=== PATIENT | male | born 1940 | race African-American/Black ===

== ENCOUNTER 2018-09-30 16:33 | Inpatient (IN) ==
[2018-09-30] MEDS ORDERED: ONDANSETRON 4 MG/2 ML VIAL ONE (17:59)
[2018-09-30] MEDS ORDERED: ONDANSETRON 4 MG/2 ML VIAL IV STA (18:04)
[2018-09-30 18:19] LABS: Apearance,Urine CLEAR (Clear); Bilirubin,Urine Negative (Negative); Blood, Urine Negative (Negative); Glucose,Urine (UA) Negative (Negative); Ketones,Urine Negative (Negative); Mucus,Urine Occasional /LPF (Occasional); Nitrite,Urine Negative (Negative); Protein,Urine Negative; RBC,Urine <1 /HPF (0-4); Urine Color Yellow (Yellow); Urine Specific Gravity 1.015 (1.001-1.035); Urine Urobilinogen < 2.0 EU/DL (0.2-1.0); WBC,Urine 2 /HPF (0-6)
[2018-09-30 18:47] LABS: Basophils % 0.4 % (0.0-0.8); Eosinophils % 0.1 % (0.00-10.9); Hemoglobin 13.8 GM/DL (14.0-18.0); Immature Granulocytes % 0.2 %; Immature Granulocytes Absolute 0.02 #; Lymphocytes # 0.6 10*3/uL (1.4-4.0); Lymphocytes % 6.1 % (21.2-54.2); Mean Corpuscular HGB Conc 34.5 GM/DL (32-36); Mean Corpuscular Hemoglobin 32 PG (27-34); Mean Corpuscular Volume 91.5 FL (87-102); Mean Platelet Volume 10.4 FL (9.6-12.0); Monocytes # 0.3 10*3/uL (0.11-0.8); Monocytes % 2.6 % (1.7-12.7); Neutrophils # 9.3 10*3/uL (1.4-7.4); Neutrophils % 90.6 % (38.7-73.9); Platelet Count 221 T/CUMM (130-400); Red Blood Count 4.37 MC/CUMM (3.8-5.5); Red Cell Distribution Width 13.1 % (9.3-17.3); White Blood Count 10.3 T/CUMM (4-12)
[2018-09-30 18:57] LABS: PT Patient Result 11.3 SECS
[2018-09-30 19:08] LABS: Albumin 3.7 G/DL (3.4-5.0); Bilirubin,Total 0.5 MG/DL (0.2-1.0); Calcium 8.7 MG/DL (8.5-10.1); Osmolality,Calculated 278.5 MOS/KG (273-304); Potassium 3.9 MMOL/L (3.5-5.1); Total Protein 7.6 G/DL (6.4-8.3)
[2018-09-30 19:14] LABS: Lymphocytes 6 % (20-55); Platelet Estimate Adequate; Segmented Neutrophils 92 % (50-85); Total Cells Counted 100
[2018-09-30] MEDS ORDERED: LABETALOL 20 MG/4 ML SYRINGE IV PRN (20:08)
[2018-09-30] MEDS ORDERED: ONDANSETRON 4 MG/2 ML VIAL IV PRN (20:08)
[2018-09-30] MEDS ORDERED: ENOXAPARIN 40 MG/0.4 ML SYRINGE SUBCUT SCH (21:00)
[2018-09-30] MEDS: DORZOLAMIDE/TIMOLOL OPH SOLN 10 ML BOTTLE RIGHT EYE SCH (23:00)
[2018-09-30] MEDS: LATANOPROST 0.005% OPH SOLN 2.5 ML BOTTLE BOTH EYES SCH (23:45)
[2018-10-01 07:12] LABS: Basophils % 0.3 % (0.0-0.8); Eosinophils # 0.1 10*3/uL (0.0-0.87); Eosinophils % 0.9 % (0.00-10.9); Hematocrit 41.6 VOL% (42.0-52.0); Hemoglobin 14.2 GM/DL (14.0-18.0); Immature Granulocytes % 0.2 %; Immature Granulocytes Absolute 0.02 #; Lymphocytes # 1.4 10*3/uL (1.4-4.0); Mean Corpuscular HGB Conc 34.1 GM/DL (32-36); Mean Corpuscular Hemoglobin 31 PG (27-34); Mean Corpuscular Volume 91.4 FL (87-102); Mean Platelet Volume 10.5 FL (9.6-12.0); Monocytes # 0.8 10*3/uL (0.11-0.8); Monocytes % 8.8 % (1.7-12.7); Neutrophils # 6.5 10*3/uL (1.4-7.4); Neutrophils % 73.8 % (38.7-73.9); Platelet Count 230 T/CUMM (130-400); Red Blood Count 4.55 MC/CUMM (3.8-5.5); Red Cell Distribution Width 13.2 % (9.3-17.3); White Blood Count 8.8 T/CUMM (4-12)
[2018-10-01 07:40] LABS: Risk Ratio 5.06; VLDL CHOLESTEROL 15.2 MG/DL
[2018-10-01] MEDS: TAMSULOSIN 0.4 MG CAPSULE PO SCH (09:53)
[2018-10-01] MEDS: ASPIRIN 325 MG TABLET PO SCH (09:53)
[2018-10-01] MEDS: DOCUSATE SODIUM 100 MG CAPSULE PO SCH (09:54)
[2018-10-01] MEDS: FINASTERIDE 5 MG TABLET PO SCH (09:54)
[2018-10-01] MEDS: CHOLECALCIFEROL 1,000 UNIT TABLET PO SCH (09:54)
[2018-10-01] MEDS: MULTIVITAMIN (CENTRUM) TABLET PO SCH (09:54)
[2018-10-01] MEDS: DORZOLAMIDE/TIMOLOL OPH SOLN 10 ML BOTTLE RIGHT EYE SCH ×2 (15:50→23:00)
[2018-10-01] MEDS: ENOXAPARIN 100 MG/ML SYRINGE SUBCUT SCH (15:51)
[2018-10-01] MEDS: amLODIPine 5 MG TABLET PO SCH (15:51)
[2018-10-01] MEDS: MINERAL OIL/PETROLATUM OPH OINT 3.5 GM TUBE BOTH EYES SCH (22:03)
[2018-10-01] MEDS: ATORVASTATIN 40 MG TABLET PO SCH (22:03)
[2018-10-01] MEDS: LATANOPROST 0.005% OPH SOLN 2.5 ML BOTTLE BOTH EYES SCH (22:03)
[2018-10-02] MEDS: ENOXAPARIN 100 MG/ML SYRINGE SUBCUT SCH ×2 (01:38→15:09)
[2018-10-02] MEDS: DOCUSATE SODIUM 100 MG CAPSULE PO SCH (10:02)
[2018-10-02] MEDS: CHOLECALCIFEROL 1,000 UNIT TABLET PO SCH (10:02)
[2018-10-02] MEDS: ASPIRIN 325 MG TABLET PO SCH (10:02)
[2018-10-02] MEDS: MULTIVITAMIN (CENTRUM) TABLET PO SCH (10:02)
[2018-10-02] MEDS: TAMSULOSIN 0.4 MG CAPSULE PO SCH (10:02)
[2018-10-02] MEDS: amLODIPine 5 MG TABLET PO SCH (10:02)
[2018-10-02] MEDS: FINASTERIDE 5 MG TABLET PO SCH (10:03)
[2018-10-02] MEDS: DORZOLAMIDE/TIMOLOL OPH SOLN 10 ML BOTTLE RIGHT EYE SCH ×2 (11:48→22:13)
[2018-10-02] MEDS: ATORVASTATIN 40 MG TABLET PO SCH (21:09)
[2018-10-02] MEDS: APIXABAN 5 MG TABLET PO SCH (21:09)
[2018-10-02] MEDS: MINERAL OIL/PETROLATUM OPH OINT 3.5 GM TUBE BOTH EYES SCH (21:10)
[2018-10-02] MEDS: LATANOPROST 0.005% OPH SOLN 2.5 ML BOTTLE BOTH EYES SCH (21:10)
[2018-10-03] MEDS ORDERED: LACTULOSE 20 GM/30 ML UDCUP PO PRN (08:48)
[2018-10-03] MEDS: FINASTERIDE 5 MG TABLET PO SCH (08:59)
[2018-10-03] MEDS: ASPIRIN 325 MG TABLET PO SCH (09:00)
[2018-10-03] MEDS: CHOLECALCIFEROL 1,000 UNIT TABLET PO SCH (09:00)
[2018-10-03] MEDS ORDERED: DORZOLAMIDE/TIMOLOL OPH SOLN 10 ML BOTTLE RIGHT EYE SCH (09:00)
[2018-10-03] MEDS: amLODIPine 5 MG TABLET PO SCH (09:01)
[2018-10-03] MEDS: APIXABAN 5 MG TABLET PO SCH (09:01)
[2018-10-03] MEDS: MULTIVITAMIN (CENTRUM) TABLET PO SCH (09:01)
[2018-10-03] MEDS: TAMSULOSIN 0.4 MG CAPSULE PO SCH (09:01)
[2018-10-03] MEDS: DOCUSATE SODIUM 100 MG CAPSULE PO SCH (09:02)
[2018-10-03] MEDS ORDERED: BISACODYL 5 MG TABLET PO PRN (09:03)
[2018-10-03 16:24] VITALS: BP 127/88
== END 2018-10-03 16:31 | DRG 65 ==
LOC: EDUNIT# → EDBD → N.2E 16:33 → N.ED 16:33 → SUATTDRO 20:08 → N.2E 21:28
PROVIDERS: ADMIT Internal Medicine; ATTEND Internal Medicine

== ENCOUNTER 2019-06-04 11:44 | Inpatient (IN) ==
[2019-06-04 12:46] LABS: Basophils % 0.5 % (0.0-0.8); Eosinophils # 0.1 10*3/uL (0.0-0.87); Eosinophils % 0.8 % (0.00-10.9); Hematocrit 39.6 VOL% (42.0-52.0); Hemoglobin 13.8 GM/DL (14.0-18.0); Immature Granulocytes % 0.3 %; Immature Granulocytes Absolute 0.02 #; Lymphocytes # 1.2 10*3/uL (1.4-4.0); Lymphocytes % 16.3 % (21.2-54.2); Mean Corpuscular HGB Conc 34.8 GM/DL (32-36); Mean Corpuscular Volume 93.2 FL (87-102); Monocytes % 7.7 % (1.7-12.7); Neutrophils % 74.4 % (38.7-73.9); Platelet Count 193 T/CUMM (130-400); Red Blood Count 4.25 MC/CUMM (3.8-5.5); White Blood Count 7.5 T/CUMM (4-12)
[2019-06-04 12:55] LABS: PT Patient Result 11.2 SECS (9.6-12.2); Partial Thromboplastin Time 33.7 SECS (20.8-36.0)
[2019-06-04 13:04] LABS: Alanine Aminotransferase 30 U/L (16-61); Albumin 3.8 G/DL (3.4-5.0); Alkaline Phosphatase 106 U/L (45-117); Aspartate Amino Transferase 23 U/L (0-37); Blood Urea Nitrogen 9 MG/DL (7-18); Estimated Glom Filtration Rate 109 ML/MIN; Glucose 103 MG/DL (74-106); Osmolality,Calculated 279.3 MOS/KG (273-304); Total Protein 7.4 G/DL (6.4-8.3)
[2019-06-04] MEDS ORDERED: LABETALOL 20 MG/4 ML SYRINGE IV PRN (16:11)
[2019-06-04 16:43] LABS: Risk Ratio 2.58; VLDL CHOLESTEROL 9.6 MG/DL
[2019-06-04] MEDS: SODIUM CHLORIDE 0.9% 1,000 ML IV SCH (21:10)
[2019-06-04] MEDS: NEPAFENAC 0.1% OPH SOLN 3 ML BOTTLE LEFT EYE SCH (21:19)
[2019-06-04] MEDS: prednisoLONE ACETATE 1% OPH SUSP 5 ML BOTTLE LEFT EYE SCH (21:20)
[2019-06-04] MEDS: MOXIFLOXACIN 0.5% OPH SOLN 3 ML BOTTLE LEFT EYE SCH (21:20)
[2019-06-05 05:15] LABS: Calcium 8.4 MG/DL (8.5-10.1); Osmolality,Calculated 277.4 MOS/KG (273-304)
[2019-06-05] MEDS: SODIUM CHLORIDE 0.9% 1,000 ML IV SCH (05:23)
[2019-06-05 06:19] LABS: Basophils # 0.1 10*3/uL (0.0-0.2); Basophils % 0.6 % (0.0-0.8); Eosinophils # 0.1 10*3/uL (0.0-0.87); Eosinophils % 1.4 % (0.00-10.9); Hematocrit 40.7 VOL% (42.0-52.0); Hemoglobin 14.3 GM/DL (14.0-18.0); Immature Granulocytes % 0.3 %; Immature Granulocytes Absolute 0.02 #; Lymphocytes # 0.9 10*3/uL (1.4-4.0); Lymphocytes % 11.9 % (21.2-54.2); Mean Corpuscular HGB Conc 35.1 GM/DL (32-36); Mean Corpuscular Volume 92.7 FL (87-102); Mean Platelet Volume 10.2 FL (9.6-12.0); Monocytes % 7.6 % (1.7-12.7); Neutrophils % 78.2 % (38.7-73.9); Platelet Count 198 T/CUMM (130-400); Red Blood Count 4.39 MC/CUMM (3.8-5.5); White Blood Count 7.8 T/CUMM (4-12)
[2019-06-05] MEDS: prednisoLONE ACETATE 1% OPH SUSP 5 ML BOTTLE LEFT EYE SCH ×4 (08:31→21:15)
[2019-06-05] MEDS: MOXIFLOXACIN 0.5% OPH SOLN 3 ML BOTTLE LEFT EYE SCH ×3 (08:31→21:15)
[2019-06-05] MEDS: NEPAFENAC 0.1% OPH SOLN 3 ML BOTTLE LEFT EYE SCH ×3 (08:31→21:15)
[2019-06-05] MEDS: ASPIRIN 325 MG TABLET PO SCH (16:55)
[2019-06-05] MEDS: TAMSULOSIN 0.4 MG CAPSULE PO SCH (16:56)
[2019-06-05] MEDS: APIXABAN 5 MG TABLET PO SCH ×2 (16:56→21:15)
[2019-06-05] MEDS: amLODIPine 2.5 MG TABLET PO SCH (16:56)
[2019-06-05] MEDS: FINASTERIDE 5 MG TABLET PO SCH (16:56)
[2019-06-05] MEDS: PANTOPRAZOLE 40 MG TABLET PO SCH (16:57)
[2019-06-05] MEDS: ATORVASTATIN 40 MG TABLET PO SCH (21:15)
[2019-06-06] MEDS: SODIUM CHLORIDE 0.9% 1,000 ML IV SCH (03:05)
[2019-06-06 05:08] LABS: Calcium 8.4 MG/DL (8.5-10.1); Osmolality,Calculated 282.1 MOS/KG (273-304); Prealbumin 19.8 MG/DL (20-40)
[2019-06-06] MEDS: MOXIFLOXACIN 0.5% OPH SOLN 3 ML BOTTLE LEFT EYE SCH ×3 (09:11→20:38)
[2019-06-06] MEDS: APIXABAN 5 MG TABLET PO SCH ×2 (09:11→20:36)
[2019-06-06] MEDS: prednisoLONE ACETATE 1% OPH SUSP 5 ML BOTTLE LEFT EYE SCH ×4 (09:11→20:38)
[2019-06-06] MEDS: NEPAFENAC 0.1% OPH SOLN 3 ML BOTTLE LEFT EYE SCH ×3 (09:11→20:37)
[2019-06-06] MEDS: FINASTERIDE 5 MG TABLET PO SCH (09:12)
[2019-06-06] MEDS: TAMSULOSIN 0.4 MG CAPSULE PO SCH (09:12)
[2019-06-06] MEDS: amLODIPine 2.5 MG TABLET PO SCH (09:12)
[2019-06-06] MEDS: ASPIRIN 325 MG TABLET PO SCH (09:12)
[2019-06-06] MEDS: PANTOPRAZOLE 40 MG TABLET PO SCH (09:12)
[2019-06-06] MEDS: ATORVASTATIN 40 MG TABLET PO SCH (20:37)
[2019-06-07 05:15] LABS: Basophils % 0.3 % (0.0-0.8); Eosinophils # 0.2 10*3/uL (0.0-0.87); Eosinophils % 1.6 % (0.00-10.9); Hemoglobin 13.7 GM/DL (14.0-18.0); Immature Granulocytes % 0.2 %; Immature Granulocytes Absolute 0.02 #; Lymphocytes % 9.2 % (21.2-54.2); Mean Corpuscular HGB Conc 35.1 GM/DL (32-36); Mean Corpuscular Volume 92.6 FL (87-102); Mean Platelet Volume 10.6 FL (9.6-12.0); Monocytes % 9.3 % (1.7-12.7); Neutrophils % 79.4 % (38.7-73.9); Platelet Count 219 T/CUMM (130-400); Red Blood Count 4.21 MC/CUMM (3.8-5.5); White Blood Count 10.7 T/CUMM (4-12)
[2019-06-07 05:29] LABS: Calcium 8.9 MG/DL (8.5-10.1); Osmolality,Calculated 284.3 MOS/KG (273-304)
[2019-06-07] MEDS: PANTOPRAZOLE 40 MG TABLET PO SCH (10:04)
[2019-06-07] MEDS: NEPAFENAC 0.1% OPH SOLN 3 ML BOTTLE LEFT EYE SCH ×3 (10:04→21:16)
[2019-06-07] MEDS: APIXABAN 5 MG TABLET PO SCH ×2 (10:04→21:16)
[2019-06-07] MEDS: amLODIPine 2.5 MG TABLET PO SCH (10:04)
[2019-06-07] MEDS: ASPIRIN 325 MG TABLET PO SCH (10:04)
[2019-06-07] MEDS: MOXIFLOXACIN 0.5% OPH SOLN 3 ML BOTTLE LEFT EYE SCH ×3 (10:04→21:17)
[2019-06-07] MEDS: TAMSULOSIN 0.4 MG CAPSULE PO SCH (10:04)
[2019-06-07] MEDS: FINASTERIDE 5 MG TABLET PO SCH (10:04)
[2019-06-07] MEDS: prednisoLONE ACETATE 1% OPH SUSP 5 ML BOTTLE LEFT EYE SCH ×4 (10:04→21:16)
[2019-06-07] MEDS: ATORVASTATIN 40 MG TABLET PO SCH (21:16)
[2019-06-08] MEDS ORDERED: FUROSEMIDE 40 MG/4 ML VIAL IV ONE (06:03)
[2019-06-08] MEDS ORDERED: methylPREDNISolone SOD SUC 40 MG/1 ML VIAL IV ONE (06:04)
[2019-06-08 06:19] LABS: ABG Base Excess 3.5 MMOL/L (-2.5-2.5); ABG HCO3 27.4 MMOL/L (20-26); ABG Oxygen Saturation 94.3 % (95-100); ABG PCO2 38.2 MM HG (35-48); ABG PH 7.462 (7.35-7.45); ABG PO2 67.2 MM HG (80-95); ABG TCO2 23.4 MMOL/L (23-27); Allen Test Positive; Pt O2 Delivery Device BIPAP
[2019-06-08] MEDS: PIPERACILLIN/TAZOBACTAM 3,375 MG in SODIUM CHLORIDE 0.9% 100 ML IV SCH ×3 (06:37→23:25)
[2019-06-08 07:10] LABS: Calcium 8.7 MG/DL (8.5-10.1); Osmolality,Calculated 277.7 MOS/KG (273-304)
[2019-06-08] MEDS: ALBUTEROL/IPRATROPIUM 3 ML NEB RESP TX SCH ×5 (07:50→23:52)
[2019-06-08] MEDS ORDERED: MANNITOL 100 GM/500 ML BAG IV ONE (11:33)
[2019-06-08] MEDS ORDERED: MANNITOL 12.5 GM/50 ML VIAL IV SCH (12:00)
[2019-06-08] MEDS: APIXABAN 5 MG TABLET PO SCH ×3 (12:15→20:26)
[2019-06-08] MEDS: TAMSULOSIN 0.4 MG CAPSULE PO SCH (12:15)
[2019-06-08] MEDS: ASPIRIN 325 MG TABLET PO SCH ×2 (12:15→12:54)
[2019-06-08] MEDS: prednisoLONE ACETATE 1% OPH SUSP 5 ML BOTTLE LEFT EYE SCH ×4 (12:16→20:27)
[2019-06-08] MEDS: amLODIPine 2.5 MG TABLET PO SCH ×2 (12:16→12:55)
[2019-06-08] MEDS: MAGNESIUM HYDROXIDE SUSP 30 ML UDCUP PO SCH (12:16)
[2019-06-08] MEDS: FINASTERIDE 5 MG TABLET PO SCH (12:16)
[2019-06-08] MEDS: PANTOPRAZOLE 40 MG TABLET PO SCH (12:16)
[2019-06-08] MEDS: NEPAFENAC 0.1% OPH SOLN 3 ML BOTTLE LEFT EYE SCH ×3 (12:16→20:27)
[2019-06-08] MEDS: MOXIFLOXACIN 0.5% OPH SOLN 3 ML BOTTLE LEFT EYE SCH ×3 (12:17→20:28)
[2019-06-08] MEDS ORDERED: MANNITOL 100 GM in PREMIX 1 EACH IV ONE (13:00)
[2019-06-08] MEDS: MANNITOL IV SCH (20:25)
[2019-06-08] MEDS: ATORVASTATIN 40 MG TABLET PO SCH (20:26)
[2019-06-09] MEDS: ALBUTEROL/IPRATROPIUM 3 ML NEB RESP TX SCH ×6 (04:20→23:05)
[2019-06-09] MEDS: MANNITOL IV SCH ×3 (05:01→20:04)
[2019-06-09] MEDS: PIPERACILLIN/TAZOBACTAM 3,375 MG in SODIUM CHLORIDE 0.9% 100 ML IV SCH ×3 (06:09→23:19)
[2019-06-09] MEDS: TAMSULOSIN 0.4 MG CAPSULE PO SCH (08:55)
[2019-06-09] MEDS: ASPIRIN 325 MG TABLET PO SCH (08:55)
[2019-06-09] MEDS: PANTOPRAZOLE 40 MG TABLET PO SCH (08:55)
[2019-06-09] MEDS: MAGNESIUM HYDROXIDE SUSP 30 ML UDCUP PO SCH (08:55)
[2019-06-09] MEDS: amLODIPine 2.5 MG TABLET PO SCH (08:55)
[2019-06-09] MEDS: APIXABAN 5 MG TABLET PO SCH ×2 (08:55→20:02)
[2019-06-09] MEDS: FINASTERIDE 5 MG TABLET PO SCH (08:55)
[2019-06-09] MEDS: NEPAFENAC 0.1% OPH SOLN 3 ML BOTTLE LEFT EYE SCH ×3 (08:56→20:15)
[2019-06-09] MEDS: MOXIFLOXACIN 0.5% OPH SOLN 3 ML BOTTLE LEFT EYE SCH ×3 (08:56→20:15)
[2019-06-09] MEDS: prednisoLONE ACETATE 1% OPH SUSP 5 ML BOTTLE LEFT EYE SCH ×4 (08:56→20:15)
[2019-06-09] MEDS ORDERED: amLODIPine 5 MG TABLET PO SCH (09:00)
[2019-06-09 11:47] LABS: Calcium 8.8 MG/DL (8.5-10.1); Osmolality,Calculated 289.3 MOS/KG (273-304)
[2019-06-09] MEDS: ATORVASTATIN 40 MG TABLET PO SCH (20:10)
[2019-06-10] MEDS: ALBUTEROL/IPRATROPIUM 3 ML NEB RESP TX SCH ×6 (03:00→23:32)
[2019-06-10] MEDS: MANNITOL IV SCH ×3 (05:04→20:37)
[2019-06-10 05:36] LABS: Basophils % 0.4 % (0.0-0.8); Eosinophils # 0.1 10*3/uL (0.0-0.87); Eosinophils % 1.1 % (0.00-10.9); Hemoglobin 13.1 GM/DL (14.0-18.0); Immature Granulocytes % 0.4 %; Immature Granulocytes Absolute 0.04 #; Lymphocytes # 0.9 10*3/uL (1.4-4.0); Lymphocytes % 7.5 % (21.2-54.2); Mean Corpuscular HGB Conc 33.6 GM/DL (32-36); Mean Corpuscular Volume 96.3 FL (87-102); Monocytes % 10.9 % (1.7-12.7); Neutrophils % 79.7 % (38.7-73.9); Platelet Count 214 T/CUMM (130-400); Red Blood Count 4.05 MC/CUMM (3.8-5.5); Red Cell Distribution Width 13.2 % (9.3-17.3); White Blood Count 11.4 T/CUMM (4-12)
[2019-06-10] MEDS: PIPERACILLIN/TAZOBACTAM 3,375 MG in SODIUM CHLORIDE 0.9% 100 ML IV SCH ×3 (06:10→23:42)
[2019-06-10 06:12] LABS: Calcium 8.5 MG/DL (8.5-10.1); Osmolality,Calculated 299.8 MOS/KG (273-304); Prealbumin 11.1 MG/DL (20-40)
[2019-06-10] MEDS: ASPIRIN 325 MG TABLET PO SCH (10:06)
[2019-06-10] MEDS: FINASTERIDE 5 MG TABLET PO SCH (10:06)
[2019-06-10] MEDS: prednisoLONE ACETATE 1% OPH SUSP 5 ML BOTTLE LEFT EYE SCH ×4 (10:07→20:37)
[2019-06-10] MEDS: TAMSULOSIN 0.4 MG CAPSULE PO SCH (10:07)
[2019-06-10] MEDS: PANTOPRAZOLE 40 MG TABLET PO SCH (10:07)
[2019-06-10] MEDS: APIXABAN 5 MG TABLET PO SCH (10:07)
[2019-06-10] MEDS: amLODIPine 2.5 MG TABLET PO SCH (10:07)
[2019-06-10] MEDS: NEPAFENAC 0.1% OPH SOLN 3 ML BOTTLE LEFT EYE SCH ×3 (10:07→20:37)
[2019-06-10] MEDS: MAGNESIUM HYDROXIDE SUSP 30 ML UDCUP PO SCH ×2 (10:08→20:19)
[2019-06-10] MEDS: MOXIFLOXACIN 0.5% OPH SOLN 3 ML BOTTLE LEFT EYE SCH ×3 (10:08→20:37)
[2019-06-10] MEDS: ATORVASTATIN 40 MG TABLET PO SCH (20:37)
[2019-06-11] MEDS: ALBUTEROL/IPRATROPIUM 3 ML NEB RESP TX SCH ×5 (03:37→19:28)
[2019-06-11] MEDS: MANNITOL IV SCH ×2 (05:13→12:27)
[2019-06-11 06:00] LABS: Basophils # 0.1 10*3/uL (0.0-0.2); Basophils % 0.5 % (0.0-0.8); Eosinophils # 0.3 10*3/uL (0.0-0.87); Eosinophils % 3.3 % (0.00-10.9); Hematocrit 39.8 VOL% (42.0-52.0); Hemoglobin 13.2 GM/DL (14.0-18.0); Immature Granulocytes % 0.2 %; Immature Granulocytes Absolute 0.02 #; Lymphocytes % 10.1 % (21.2-54.2); Mean Corpuscular HGB Conc 33.2 GM/DL (32-36); Mean Corpuscular Volume 97.3 FL (87-102); Mean Platelet Volume 11.2 FL (9.6-12.0); Monocytes % 10.8 % (1.7-12.7); Neutrophils % 75.1 % (38.7-73.9); Platelet Count 244 T/CUMM (130-400); Red Blood Count 4.09 MC/CUMM (3.8-5.5); Red Cell Distribution Width 13.2 % (9.3-17.3); White Blood Count 9.4 T/CUMM (4-12)
[2019-06-11 06:24] LABS: Calcium 8.8 MG/DL (8.5-10.1); Osmolality,Calculated 301.6 MOS/KG (273-304); Risk Ratio 3.29; VLDL CHOLESTEROL 15.4 MG/DL
[2019-06-11] MEDS: PIPERACILLIN/TAZOBACTAM 3,375 MG in SODIUM CHLORIDE 0.9% 100 ML IV SCH (07:23)
[2019-06-11] MEDS: FINASTERIDE 5 MG TABLET PO SCH (09:25)
[2019-06-11] MEDS: ASPIRIN 325 MG TABLET PO SCH (09:25)
[2019-06-11] MEDS: amLODIPine 2.5 MG TABLET PO SCH (09:25)
[2019-06-11] MEDS: LANSOPRAZOLE ODT 30 MG TABLET PO SCH (09:26)
[2019-06-11] MEDS: MAGNESIUM HYDROXIDE SUSP 30 ML UDCUP PO SCH (09:26)
[2019-06-11] MEDS: MOXIFLOXACIN 0.5% OPH SOLN 3 ML BOTTLE LEFT EYE SCH ×2 (09:26→21:58)
[2019-06-11] MEDS: NEPAFENAC 0.1% OPH SOLN 3 ML BOTTLE LEFT EYE SCH ×2 (09:26→21:58)
[2019-06-11] MEDS: TAMSULOSIN 0.4 MG CAPSULE PO SCH (09:26)
[2019-06-11] MEDS: prednisoLONE ACETATE 1% OPH SUSP 5 ML BOTTLE LEFT EYE SCH ×2 (09:26→21:58)
[2019-06-11] MEDS: AMOXICILLIN/CLAV 875 MG TABLET PEG SCH (12:24)
[2019-06-11] MEDS: BISACODYL 5 MG TABLET PO PRN ×2 (12:28→16:00)
[2019-06-11] MEDS: LACTULOSE 20 GM/30 ML UDCUP PO PRN (16:00)
[2019-06-11] MEDS: ATORVASTATIN 40 MG TABLET PO SCH (21:40)
[2019-06-12] MEDS: AMOXICILLIN/CLAV 875 MG TABLET PEG SCH ×2 (00:01→12:57)
[2019-06-12] MEDS: ALBUTEROL/IPRATROPIUM 3 ML NEB RESP TX SCH ×7 (00:21→23:20)
[2019-06-12 05:42] LABS: Basophils % 0.4 % (0.0-0.8); Eosinophils # 0.4 10*3/uL (0.0-0.87); Eosinophils % 4.4 % (0.00-10.9); Hematocrit 39.8 VOL% (42.0-52.0); Hemoglobin 13.1 GM/DL (14.0-18.0); Immature Granulocytes % 0.2 %; Immature Granulocytes Absolute 0.02 #; Lymphocytes # 0.9 10*3/uL (1.4-4.0); Lymphocytes % 10.2 % (21.2-54.2); Mean Corpuscular HGB Conc 32.9 GM/DL (32-36); Mean Corpuscular Volume 97.5 FL (87-102); Mean Platelet Volume 11.4 FL (9.6-12.0); Monocytes % 9.1 % (1.7-12.7); Neutrophils % 75.7 % (38.7-73.9); Platelet Count 239 T/CUMM (130-400); Red Blood Count 4.08 MC/CUMM (3.8-5.5); Red Cell Distribution Width 12.9 % (9.3-17.3); White Blood Count 8.9 T/CUMM (4-12)
[2019-06-12 06:05] LABS: Calcium 9.1 MG/DL (8.5-10.1); Osmolality,Calculated 296.7 MOS/KG (273-304)
[2019-06-12] MEDS: ASPIRIN 325 MG TABLET PO SCH (09:13)
[2019-06-12] MEDS: POLYETHYLENE GLYCOL POWDER 17 GM PACK PO SCH (09:13)
[2019-06-12] MEDS: FINASTERIDE 5 MG TABLET PO SCH (09:13)
[2019-06-12] MEDS: LANSOPRAZOLE ODT 30 MG TABLET PO SCH (09:13)
[2019-06-12] MEDS: amLODIPine 2.5 MG TABLET PO SCH (09:13)
[2019-06-12] MEDS: BISACODYL 5 MG TABLET PO PRN (09:13)
[2019-06-12] MEDS: LACTULOSE 20 GM/30 ML UDCUP PO PRN (09:13)
[2019-06-12] MEDS: MAGNESIUM HYDROXIDE SUSP 30 ML UDCUP PO SCH (09:14)
[2019-06-12] MEDS: TAMSULOSIN 0.4 MG CAPSULE PO SCH (09:14)
[2019-06-12] MEDS: prednisoLONE ACETATE 1% OPH SUSP 5 ML BOTTLE LEFT EYE SCH ×2 (09:14→21:31)
[2019-06-12] MEDS: NEPAFENAC 0.1% OPH SOLN 3 ML BOTTLE LEFT EYE SCH ×2 (09:15→21:31)
[2019-06-12] MEDS: MOXIFLOXACIN 0.5% OPH SOLN 3 ML BOTTLE LEFT EYE SCH ×2 (09:15→21:31)
[2019-06-12] MEDS: ATORVASTATIN 40 MG TABLET PO SCH (21:26)
[2019-06-13] MEDS: AMOXICILLIN/CLAV 875 MG TABLET PEG SCH ×3 (00:21→23:01)
[2019-06-13] MEDS: ALBUTEROL/IPRATROPIUM 3 ML NEB RESP TX SCH ×5 (04:08→19:20)
[2019-06-13 05:06] LABS: Basophils # 0.1 10*3/uL (0.0-0.2); Basophils % 0.6 % (0.0-0.8); Eosinophils # 0.4 10*3/uL (0.0-0.87); Eosinophils % 4.4 % (0.00-10.9); Hematocrit 38.1 VOL% (42.0-52.0); Hemoglobin 12.7 GM/DL (14.0-18.0); Immature Granulocytes % 0.4 %; Immature Granulocytes Absolute 0.04 #; Lymphocytes # 1.1 10*3/uL (1.4-4.0); Lymphocytes % 11.9 % (21.2-54.2); Mean Corpuscular HGB Conc 33.3 GM/DL (32-36); Mean Corpuscular Volume 97.2 FL (87-102); Mean Platelet Volume 10.5 FL (9.6-12.0); Monocytes % 8.5 % (1.7-12.7); Neutrophils % 74.2 % (38.7-73.9); Platelet Count 231 T/CUMM (130-400); Red Blood Count 3.92 MC/CUMM (3.8-5.5); Red Cell Distribution Width 12.6 % (9.3-17.3)
[2019-06-13 05:26] LABS: Calcium 8.7 MG/DL (8.5-10.1); Prealbumin 16.7 MG/DL (20-40)
[2019-06-13] MEDS: POLYETHYLENE GLYCOL POWDER 17 GM PACK PO SCH (09:06)
[2019-06-13] MEDS: TAMSULOSIN 0.4 MG CAPSULE PO SCH (09:06)
[2019-06-13] MEDS: amLODIPine 2.5 MG TABLET PO SCH (09:06)
[2019-06-13] MEDS: FINASTERIDE 5 MG TABLET PO SCH (09:06)
[2019-06-13] MEDS: NEPAFENAC 0.1% OPH SOLN 3 ML BOTTLE LEFT EYE SCH ×2 (09:06→20:47)
[2019-06-13] MEDS: MAGNESIUM HYDROXIDE SUSP 30 ML UDCUP PO SCH (09:06)
[2019-06-13] MEDS: ASPIRIN 325 MG TABLET PO SCH (09:06)
[2019-06-13] MEDS: LANSOPRAZOLE ODT 30 MG TABLET PO SCH (09:06)
[2019-06-13] MEDS: MOXIFLOXACIN 0.5% OPH SOLN 3 ML BOTTLE LEFT EYE SCH ×2 (09:07→20:47)
[2019-06-13] MEDS: prednisoLONE ACETATE 1% OPH SUSP 5 ML BOTTLE LEFT EYE SCH ×2 (09:07→20:47)
[2019-06-13] MEDS: ATORVASTATIN 40 MG TABLET PO SCH (20:47)
[2019-06-13] MEDS: BISACODYL 5 MG TABLET PO PRN (22:51)
[2019-06-13] MEDS: LACTULOSE 20 GM/30 ML UDCUP PO PRN (22:51)
[2019-06-14] MEDS: ALBUTEROL/IPRATROPIUM 3 ML NEB RESP TX SCH ×7 (00:23→23:30)
[2019-06-14 05:43] LABS: Basophils # 0.1 10*3/uL (0.0-0.2); Basophils % 0.6 % (0.0-0.8); Eosinophils # 0.3 10*3/uL (0.0-0.87); Eosinophils % 3.2 % (0.00-10.9); Hematocrit 39.6 VOL% (42.0-52.0); Hemoglobin 13.2 GM/DL (14.0-18.0); Immature Granulocytes % 0.6 %; Immature Granulocytes Absolute 0.06 #; Lymphocytes # 1.3 10*3/uL (1.4-4.0); Lymphocytes % 12.6 % (21.2-54.2); Mean Corpuscular HGB Conc 33.3 GM/DL (32-36); Mean Corpuscular Volume 96.1 FL (87-102); Mean Platelet Volume 10.8 FL (9.6-12.0); Monocytes % 8.8 % (1.7-12.7); Neutrophils % 74.2 % (38.7-73.9); Platelet Count 254 T/CUMM (130-400); Red Blood Count 4.12 MC/CUMM (3.8-5.5); Red Cell Distribution Width 12.3 % (9.3-17.3); White Blood Count 10.4 T/CUMM (4-12)
[2019-06-14 06:11] LABS: Osmolality,Calculated 286.3 MOS/KG (273-304)
[2019-06-14] MEDS ORDERED: LACTATED RINGERS 1,000 ML IV SCH (08:00)
[2019-06-14] MEDS: prednisoLONE ACETATE 1% OPH SUSP 5 ML BOTTLE LEFT EYE SCH ×2 (09:07→22:05)
[2019-06-14] MEDS: TAMSULOSIN 0.4 MG CAPSULE PO SCH (09:08)
[2019-06-14] MEDS: FINASTERIDE 5 MG TABLET PO SCH (09:09)
[2019-06-14] MEDS: amLODIPine 2.5 MG TABLET PO SCH (09:09)
[2019-06-14] MEDS: NEPAFENAC 0.1% OPH SOLN 3 ML BOTTLE LEFT EYE SCH ×2 (09:13→22:05)
[2019-06-14] MEDS: LANSOPRAZOLE ODT 30 MG TABLET PO SCH (09:25)
[2019-06-14] MEDS: MOXIFLOXACIN 0.5% OPH SOLN 3 ML BOTTLE LEFT EYE SCH ×2 (09:25→22:05)
[2019-06-14] MEDS ORDERED: PROPOFOL 200 MG/20 ML VIAL IV ONE (10:00)
[2019-06-14] MEDS ORDERED: ETOMIDATE 20 MG/10 ML VIAL IV ONE (10:00)
[2019-06-14 12:32] LABS: ABG Base Excess 1.7 MMOL/L (-2.5-2.5); ABG HCO3 25.8 MMOL/L (20-26); ABG Oxygen Saturation 94.5 % (95-100); ABG PCO2 39.2 MM HG (35-48); ABG PH 7.429 (7.35-7.45); ABG PO2 72.1 MM HG (80-95); ABG TCO2 22.5 MMOL/L (23-27)
[2019-06-14] MEDS ORDERED: PHENOL 1.4% THROAT SPRAY 177 ML BOTTLE PO PRN (16:15)
[2019-06-14] MEDS: ASPIRIN 325 MG TABLET PO SCH (19:35)
[2019-06-14] MEDS: AMOXICILLIN/CLAV 875 MG TABLET PEG SCH (19:36)
[2019-06-14] MEDS: MAGNESIUM HYDROXIDE SUSP 30 ML UDCUP PO SCH (19:36)
[2019-06-14] MEDS: POLYETHYLENE GLYCOL POWDER 17 GM PACK PO SCH (19:36)
[2019-06-14] MEDS: ATORVASTATIN 40 MG TABLET PO SCH (22:06)
[2019-06-14] MEDS: APIXABAN 5 MG TABLET PO SCH (22:06)
[2019-06-15] MEDS: ALBUTEROL/IPRATROPIUM 3 ML NEB RESP TX SCH ×5 (03:14→19:35)
[2019-06-15 04:28] LABS: Basophils % 0.3 % (0.0-0.8); Eosinophils # 0.2 10*3/uL (0.0-0.87); Eosinophils % 1.1 % (0.00-10.9); Hematocrit 38.3 VOL% (42.0-52.0); Immature Granulocytes % 0.6 %; Immature Granulocytes Absolute 0.08 #; Lymphocytes % 6.9 % (21.2-54.2); Mean Corpuscular HGB Conc 33.9 GM/DL (32-36); Mean Platelet Volume 10.8 FL (9.6-12.0); Monocytes % 7.6 % (1.7-12.7); Neutrophils % 83.5 % (38.7-73.9); Platelet Count 281 T/CUMM (130-400); Red Blood Count 4.03 MC/CUMM (3.8-5.5); Red Cell Distribution Width 12.4 % (9.3-17.3); White Blood Count 14.3 T/CUMM (4-12)
[2019-06-15] MEDS: AMOXICILLIN/CLAV 875 MG TABLET PEG SCH ×2 (04:44→12:04)
[2019-06-15 04:57] LABS: Calcium 8.8 MG/DL (8.5-10.1); Osmolality,Calculated 291.1 MOS/KG (273-304)
[2019-06-15] MEDS: ASPIRIN 325 MG TABLET PO SCH (12:03)
[2019-06-15] MEDS: FINASTERIDE 5 MG TABLET PO SCH (12:04)
[2019-06-15] MEDS: APIXABAN 5 MG TABLET PO SCH ×2 (12:05→22:20)
[2019-06-15] MEDS: POLYETHYLENE GLYCOL POWDER 17 GM PACK PO SCH (12:06)
[2019-06-15] MEDS: MAGNESIUM HYDROXIDE SUSP 30 ML UDCUP PO SCH (12:06)
[2019-06-15] MEDS: TAMSULOSIN 0.4 MG CAPSULE PO SCH (12:06)
[2019-06-15] MEDS: LANSOPRAZOLE ODT 30 MG TABLET PO SCH (12:06)
[2019-06-15] MEDS: amLODIPine 2.5 MG TABLET PO SCH (12:07)
[2019-06-15] MEDS: prednisoLONE ACETATE 1% OPH SUSP 5 ML BOTTLE LEFT EYE SCH ×2 (12:33→20:57)
[2019-06-15] MEDS: NEPAFENAC 0.1% OPH SOLN 3 ML BOTTLE LEFT EYE SCH ×2 (12:33→20:57)
[2019-06-15] MEDS: MOXIFLOXACIN 0.5% OPH SOLN 3 ML BOTTLE LEFT EYE SCH ×2 (12:33→20:57)
[2019-06-15] MEDS: DOCUSATE/SENNA 50-8.6 MG TABLET PEG SCH ×2 (16:15→22:23)
[2019-06-15] MEDS: ONDANSETRON 4 MG/2 ML VIAL IV PRN (18:23)
[2019-06-15] MEDS: NYSTATIN 500,000 UNIT/5 ML UDCUP SWISH/SWAL SCH (19:30)
[2019-06-15 20:30] LABS: ABG Base Excess 1.8 MMOL/L (-2.5-2.5); ABG Oxygen Saturation 97.4 % (95-100); ABG PCO2 33.7 MM HG (35-48); ABG PH 7.474 (7.35-7.45); ABG PO2 89.4 MM HG (80-95); ABG TCO2 21.2 MMOL/L (23-27)
[2019-06-15] MEDS: ATORVASTATIN 40 MG TABLET PO SCH (22:20)
[2019-06-16] MEDS: ALBUTEROL/IPRATROPIUM 3 ML NEB RESP TX SCH ×7 (00:10→23:47)
[2019-06-16] MEDS: NYSTATIN 500,000 UNIT/5 ML UDCUP SWISH/SWAL SCH ×5 (00:30→21:39)
[2019-06-16] MEDS: AMOXICILLIN/CLAV 875 MG TABLET PEG SCH ×2 (00:38→11:49)
[2019-06-16 04:34] LABS: Basophils # 0.1 10*3/uL (0.0-0.2); Basophils % 0.3 % (0.0-0.8); Hematocrit 39.5 VOL% (42.0-52.0); Hemoglobin 13.3 GM/DL (14.0-18.0); Immature Granulocytes % 0.9 %; Immature Granulocytes Absolute 0.23 #; Lymphocytes # 0.8 10*3/uL (1.4-4.0); Mean Corpuscular HGB Conc 33.7 GM/DL (32-36); Mean Corpuscular Volume 96.8 FL (87-102); Monocytes % 4.6 % (1.7-12.7); Neutrophils % 91.2 % (38.7-73.9); Platelet Count 320 T/CUMM (130-400); Red Blood Count 4.08 MC/CUMM (3.8-5.5); Red Cell Distribution Width 12.8 % (9.3-17.3); White Blood Count 26.6 T/CUMM (4-12)
[2019-06-16 05:03] LABS: Lymphocytes 3 % (20-55); Segmented Neutrophils 94 % (50-85); Total Cells Counted 100
[2019-06-16 05:04] LABS: Microcytosis Slight
[2019-06-16 05:06] LABS: Ovalocytes Slight; Tear Drop Cells Few
[2019-06-16 05:07] LABS: Platelet Estimate Normal; Spherocytes Slight
[2019-06-16] MEDS: MOXIFLOXACIN 0.5% OPH SOLN 3 ML BOTTLE LEFT EYE SCH ×2 (09:15→21:38)
[2019-06-16] MEDS: NEPAFENAC 0.1% OPH SOLN 3 ML BOTTLE LEFT EYE SCH ×2 (09:15→21:38)
[2019-06-16] MEDS: prednisoLONE ACETATE 1% OPH SUSP 5 ML BOTTLE LEFT EYE SCH ×2 (09:15→21:38)
[2019-06-16] MEDS: ASPIRIN 325 MG TABLET PO SCH (11:49)
[2019-06-16] MEDS: TAMSULOSIN 0.4 MG CAPSULE PO SCH (11:49)
[2019-06-16] MEDS: amLODIPine 2.5 MG TABLET PO SCH (11:49)
[2019-06-16] MEDS: DOCUSATE/SENNA 50-8.6 MG TABLET PEG SCH ×2 (11:50→23:54)
[2019-06-16] MEDS: FINASTERIDE 5 MG TABLET PO SCH (11:50)
[2019-06-16] MEDS: LANSOPRAZOLE ODT 30 MG TABLET PO SCH (11:50)
[2019-06-16] MEDS: POLYETHYLENE GLYCOL POWDER 17 GM PACK PO SCH (11:51)
[2019-06-16] MEDS: MAGNESIUM HYDROXIDE SUSP 30 ML UDCUP PO SCH (11:51)
[2019-06-16] MEDS: APIXABAN 5 MG TABLET PO SCH ×2 (11:51→21:39)
[2019-06-16 15:56] LABS: Apearance,Urine CLEAR (Clear); Bilirubin,Urine Negative (Negative); Blood, Urine Moderate mg/dL (Negative); Glucose,Urine (UA) Negative (Negative); Ketones,Urine Negative (Negative); Mucus,Urine Occasional /LPF (Occasional); Nitrite,Urine Negative (Negative); Protein,Urine Negative; RBC,Urine 6 /HPF (0-4); Squamous Epithelial Cell,Urine Occasional /HPF (0-10); Urine Color Amber (Yellow); Urine Specific Gravity 1.043 (1.001-1.035); Urine Urobilinogen < 2.0 EU/DL (0.2-1.0); WBC,Urine 2 /HPF (0-6)
[2019-06-16] MEDS: DEXT 5% NACL 0.45% KCL 10 MEQ 10 MEQ/1,000 ML BAG IV SCH (16:45)
[2019-06-16 16:58] LABS: Barbiturates Screen,Urine Negative (Negative); Benzodiazepines Screen,Urine Negative (Negative); Cannabinoid Screen,Urine Negative (Negative); Opiate Screen,Urine Negative (Negative); Phencyclidine Screen,Urine Negative (Negative)
[2019-06-16] MEDS: PIPERACILLIN/TAZOBACTAM 3,375 MG in SODIUM CHLORIDE 0.9% 100 ML IV SCH ×2 (17:00→23:54)
[2019-06-16] MEDS: ATORVASTATIN 40 MG TABLET PO SCH (21:39)
[2019-06-16] MEDS: VANCOMYCIN INJ 1,500 MG in SODIUM CHLORIDE 0.9% 500 ML IV SCH (21:59)
[2019-06-17] MEDS: ALBUTEROL/IPRATROPIUM 3 ML NEB RESP TX SCH ×6 (04:15→23:52)
[2019-06-17 04:38] LABS: Basophils # 0.1 10*3/uL (0.0-0.2); Basophils % 0.3 % (0.0-0.8); Eosinophils # 0.5 10*3/uL (0.0-0.87); Eosinophils % 2.3 % (0.00-10.9); Hemoglobin 12.7 GM/DL (14.0-18.0); Immature Granulocytes % 0.5 %; Lymphocytes # 0.9 10*3/uL (1.4-4.0); Lymphocytes % 4.3 % (21.2-54.2); Mean Corpuscular HGB Conc 32.6 GM/DL (32-36); Mean Corpuscular Volume 99.2 FL (87-102); Mean Platelet Volume 11.4 FL (9.6-12.0); Monocytes % 5.4 % (1.7-12.7); Neutrophils % 87.2 % (38.7-73.9); Platelet Count 319 T/CUMM (130-400); Red Blood Count 3.93 MC/CUMM (3.8-5.5); White Blood Count 20.7 T/CUMM (4-12)
[2019-06-17 05:07] LABS: Eosinophils 2 % (0-10); Lymphocytes 6 % (20-55); Platelet Estimate Adequate; Segmented Neutrophils 88 % (50-85); Total Cells Counted 100
[2019-06-17 05:08] LABS: Microcytosis Slight
[2019-06-17 05:10] LABS: Calcium 8.9 MG/DL (8.5-10.1); Osmolality,Calculated 304.6 MOS/KG (273-304)
[2019-06-17] MEDS: PIPERACILLIN/TAZOBACTAM 3,375 MG in SODIUM CHLORIDE 0.9% 100 ML IV SCH ×2 (05:38→17:29)
[2019-06-17] MEDS: VANCOMYCIN INJ 1,500 MG in SODIUM CHLORIDE 0.9% 500 ML IV SCH ×2 (10:33→21:35)
[2019-06-17] MEDS: LACTULOSE 20 GM/30 ML UDCUP PO PRN (10:34)
[2019-06-17] MEDS: MAGNESIUM HYDROXIDE SUSP 30 ML UDCUP PO SCH (10:34)
[2019-06-17] MEDS: APIXABAN 5 MG TABLET PO SCH (10:35)
[2019-06-17] MEDS: DOCUSATE/SENNA 50-8.6 MG TABLET PEG SCH ×2 (10:35→21:34)
[2019-06-17] MEDS: NYSTATIN 500,000 UNIT/5 ML UDCUP SWISH/SWAL SCH ×3 (10:35→21:34)
[2019-06-17] MEDS: LANSOPRAZOLE ODT 30 MG TABLET PO SCH (10:35)
[2019-06-17] MEDS: amLODIPine 2.5 MG TABLET PO SCH (10:35)
[2019-06-17] MEDS: FINASTERIDE 5 MG TABLET PO SCH (10:36)
[2019-06-17] MEDS: prednisoLONE ACETATE 1% OPH SUSP 5 ML BOTTLE LEFT EYE SCH ×2 (10:36→21:35)
[2019-06-17] MEDS: MOXIFLOXACIN 0.5% OPH SOLN 3 ML BOTTLE LEFT EYE SCH ×2 (10:36→21:35)
[2019-06-17] MEDS: ASPIRIN 325 MG TABLET PO SCH (10:36)
[2019-06-17] MEDS: NEPAFENAC 0.1% OPH SOLN 3 ML BOTTLE LEFT EYE SCH ×2 (10:36→21:35)
[2019-06-17] MEDS: TAMSULOSIN 0.4 MG CAPSULE PO SCH (10:36)
[2019-06-17] MEDS: POLYETHYLENE GLYCOL POWDER 17 GM PACK PO SCH (17:28)
[2019-06-17] MEDS: ENOXAPARIN 100 MG/ML SYRINGE SUBCUT SCH (21:33)
[2019-06-17] MEDS: ATORVASTATIN 40 MG TABLET PO SCH (21:34)
[2019-06-17] MEDS: LACTULOSE 20 GM/30 ML UDCUP NG SCH (21:35)
[2019-06-18] MEDS: PIPERACILLIN/TAZOBACTAM 3,375 MG in SODIUM CHLORIDE 0.9% 100 ML IV SCH ×4 (01:53→20:23)
[2019-06-18] MEDS: ALBUTEROL/IPRATROPIUM 3 ML NEB RESP TX SCH ×6 (03:56→23:02)
[2019-06-18] MEDS: ENOXAPARIN 100 MG/ML SYRINGE SUBCUT SCH ×2 (10:10→20:31)
[2019-06-18] MEDS: DOCUSATE/SENNA 50-8.6 MG TABLET PEG SCH ×2 (10:10→20:27)
[2019-06-18] MEDS: LACTULOSE 20 GM/30 ML UDCUP NG SCH ×2 (10:10→20:26)
[2019-06-18] MEDS: MAGNESIUM HYDROXIDE SUSP 30 ML UDCUP PO SCH (10:10)
[2019-06-18] MEDS: ASPIRIN 325 MG TABLET PO SCH (10:11)
[2019-06-18] MEDS: LANSOPRAZOLE ODT 30 MG TABLET PO SCH (10:11)
[2019-06-18] MEDS: NYSTATIN 500,000 UNIT/5 ML UDCUP SWISH/SWAL SCH ×4 (10:11→20:26)
[2019-06-18] MEDS: amLODIPine 2.5 MG TABLET PO SCH (10:11)
[2019-06-18] MEDS: TAMSULOSIN 0.4 MG CAPSULE PO SCH (10:11)
[2019-06-18] MEDS: FINASTERIDE 5 MG TABLET PO SCH (10:11)
[2019-06-18] MEDS: POLYETHYLENE GLYCOL POWDER 17 GM PACK PO SCH (10:11)
[2019-06-18] MEDS: NEPAFENAC 0.1% OPH SOLN 3 ML BOTTLE LEFT EYE SCH ×2 (10:12→20:27)
[2019-06-18] MEDS: DEXT 5% NACL 0.45% KCL 10 MEQ 10 MEQ/1,000 ML BAG IV SCH (10:12)
[2019-06-18] MEDS: prednisoLONE ACETATE 1% OPH SUSP 5 ML BOTTLE LEFT EYE SCH ×2 (10:12→20:27)
[2019-06-18] MEDS: MOXIFLOXACIN 0.5% OPH SOLN 3 ML BOTTLE LEFT EYE SCH ×2 (10:12→20:27)
[2019-06-18] MEDS: VANCOMYCIN INJ 1,500 MG in SODIUM CHLORIDE 0.9% 500 ML IV SCH ×2 (10:38→20:24)
[2019-06-18] MEDS: ATORVASTATIN 40 MG TABLET PO SCH (20:27)
[2019-06-19] MEDS: ACETAMINOPHEN 325 MG TABLET PO PRN (00:32)
[2019-06-19] MEDS: DEXT 5% NACL 0.45% KCL 10 MEQ 10 MEQ/1,000 ML BAG IV SCH (03:00)
[2019-06-19] MEDS: ALBUTEROL/IPRATROPIUM 3 ML NEB RESP TX SCH ×6 (03:55→23:53)
[2019-06-19] MEDS: PIPERACILLIN/TAZOBACTAM 3,375 MG in SODIUM CHLORIDE 0.9% 100 ML IV SCH ×3 (05:03→20:39)
[2019-06-19 05:50] LABS: Basophils # 0.1 10*3/uL (0.0-0.2); Basophils % 0.4 % (0.0-0.8); Eosinophils # 0.2 10*3/uL (0.0-0.87); Hematocrit 36.8 VOL% (42.0-52.0); Hemoglobin 11.7 GM/DL (14.0-18.0); Immature Granulocytes % 0.4 %; Immature Granulocytes Absolute 0.07 #; Lymphocytes # 0.9 10*3/uL (1.4-4.0); Mean Corpuscular HGB Conc 31.8 GM/DL (32-36); Mean Corpuscular Volume 100.3 FL (87-102); Mean Platelet Volume 10.9 FL (9.6-12.0); Monocytes % 5.7 % (1.7-12.7); Neutrophils % 86.5 % (38.7-73.9); Platelet Count 343 T/CUMM (130-400); Red Blood Count 3.67 MC/CUMM (3.8-5.5); Red Cell Distribution Width 13.2 % (9.3-17.3); White Blood Count 15.7 T/CUMM (4-12)
[2019-06-19 06:00] LABS: Calcium 8.7 MG/DL (8.5-10.1); Osmolality,Calculated 313.3 MOS/KG (273-304)
[2019-06-19] MEDS ORDERED: BISACODYL 10 MG SUPP RECTAL ONE (10:04)
[2019-06-19] MEDS: ASPIRIN 325 MG TABLET PO SCH (11:30)
[2019-06-19] MEDS: TAMSULOSIN 0.4 MG CAPSULE PO SCH (11:31)
[2019-06-19] MEDS: prednisoLONE ACETATE 1% OPH SUSP 5 ML BOTTLE LEFT EYE SCH ×2 (11:31→23:24)
[2019-06-19] MEDS: LACTULOSE 20 GM/30 ML UDCUP NG SCH ×6 (11:31→23:37)
[2019-06-19] MEDS: LANSOPRAZOLE ODT 30 MG TABLET PO SCH (11:31)
[2019-06-19] MEDS: MAGNESIUM HYDROXIDE SUSP 30 ML UDCUP PO SCH (11:31)
[2019-06-19] MEDS: NYSTATIN 500,000 UNIT/5 ML UDCUP SWISH/SWAL SCH ×4 (11:31→23:20)
[2019-06-19] MEDS: ENOXAPARIN 100 MG/ML SYRINGE SUBCUT SCH ×2 (11:31→21:30)
[2019-06-19] MEDS: POLYETHYLENE GLYCOL POWDER 17 GM PACK PO SCH (11:31)
[2019-06-19] MEDS: NEPAFENAC 0.1% OPH SOLN 3 ML BOTTLE LEFT EYE SCH ×2 (11:31→23:21)
[2019-06-19] MEDS: amLODIPine 2.5 MG TABLET PO SCH (11:31)
[2019-06-19] MEDS: FINASTERIDE 5 MG TABLET PO SCH (11:32)
[2019-06-19] MEDS: DOCUSATE/SENNA 50-8.6 MG TABLET PEG SCH ×2 (11:32→21:30)
[2019-06-19] MEDS: VANCOMYCIN INJ 1,500 MG in SODIUM CHLORIDE 0.9% 500 ML IV SCH (11:32)
[2019-06-19] MEDS: MOXIFLOXACIN 0.5% OPH SOLN 3 ML BOTTLE LEFT EYE SCH ×2 (11:33→23:25)
[2019-06-19] MEDS: DEXTROSE 5% KCL 20 MEQ 20 MEQ/1,000 ML BAG IV SCH (20:39)
[2019-06-19] MEDS: ATORVASTATIN 40 MG TABLET PO SCH (21:30)
[2019-06-20] MEDS: VANCOMYCIN INJ 1,500 MG in SODIUM CHLORIDE 0.9% 500 ML IV SCH ×3 (01:34→20:58)
[2019-06-20] MEDS: LACTULOSE 20 GM/30 ML UDCUP NG SCH ×4 (01:36→09:00)
[2019-06-20] MEDS: ALBUTEROL/IPRATROPIUM 3 ML NEB RESP TX SCH ×6 (02:54→23:45)
[2019-06-20] MEDS ORDERED: MORPHINE 4 MG/1 ML VIAL IV ONE (03:40)
[2019-06-20 05:08] LABS: Basophils # 0.1 10*3/uL (0.0-0.2); Basophils % 0.4 % (0.0-0.8); Eosinophils # 0.3 10*3/uL (0.0-0.87); Eosinophils % 1.5 % (0.00-10.9); Hematocrit 38.3 VOL% (42.0-52.0); Hemoglobin 12.4 GM/DL (14.0-18.0); Immature Granulocytes % 0.5 %; Immature Granulocytes Absolute 0.09 #; Lymphocytes % 5.6 % (21.2-54.2); Mean Corpuscular HGB Conc 32.4 GM/DL (32-36); Mean Corpuscular Volume 100.3 FL (87-102); Mean Platelet Volume 10.7 FL (9.6-12.0); Monocytes % 5.8 % (1.7-12.7); Neutrophils % 86.2 % (38.7-73.9); Platelet Count 405 T/CUMM (130-400); Red Blood Count 3.82 MC/CUMM (3.8-5.5); Red Cell Distribution Width 13.3 % (9.3-17.3); White Blood Count 17.2 T/CUMM (4-12)
[2019-06-20] MEDS: PIPERACILLIN/TAZOBACTAM 3,375 MG in SODIUM CHLORIDE 0.9% 100 ML IV SCH ×2 (05:19→14:12)
[2019-06-20 05:36] LABS: Calcium 9.1 MG/DL (8.5-10.1); Osmolality,Calculated 320.7 MOS/KG (273-304)
[2019-06-20 05:41] LABS: Prealbumin 7.7 MG/DL (20-40)
[2019-06-20] MEDS: MAGNESIUM HYDROXIDE SUSP 30 ML UDCUP PO SCH (08:59)
[2019-06-20] MEDS: ENOXAPARIN 100 MG/ML SYRINGE SUBCUT SCH ×2 (08:59→21:07)
[2019-06-20] MEDS: POLYETHYLENE GLYCOL POWDER 17 GM PACK PO SCH (08:59)
[2019-06-20] MEDS: NYSTATIN 500,000 UNIT/5 ML UDCUP SWISH/SWAL SCH ×4 (08:59→20:50)
[2019-06-20] MEDS: ASPIRIN 325 MG TABLET PO SCH (09:00)
[2019-06-20] MEDS: TAMSULOSIN 0.4 MG CAPSULE PO SCH (09:00)
[2019-06-20] MEDS: FINASTERIDE 5 MG TABLET PO SCH (09:00)
[2019-06-20] MEDS: LANSOPRAZOLE ODT 30 MG TABLET PO SCH (09:04)
[2019-06-20] MEDS: DOCUSATE/SENNA 50-8.6 MG TABLET PEG SCH ×2 (09:04→20:50)
[2019-06-20] MEDS: prednisoLONE ACETATE 1% OPH SUSP 5 ML BOTTLE LEFT EYE SCH (09:04)
[2019-06-20] MEDS: NEPAFENAC 0.1% OPH SOLN 3 ML BOTTLE LEFT EYE SCH (09:04)
[2019-06-20] MEDS: amLODIPine 2.5 MG TABLET PO SCH (09:04)
[2019-06-20] MEDS: MOXIFLOXACIN 0.5% OPH SOLN 3 ML BOTTLE LEFT EYE SCH (09:04)
[2019-06-20] MEDS: DEXT 5% NACL 0.45% KCL 10 MEQ 10 MEQ/1,000 ML BAG IV SCH (14:14)
[2019-06-20] MEDS: ATORVASTATIN 40 MG TABLET PO SCH (20:50)
[2019-06-21] MEDS: ALBUTEROL/IPRATROPIUM 3 ML NEB RESP TX SCH ×6 (02:05→23:40)
[2019-06-21] MEDS: DEXTROSE 5% KCL 20 MEQ 20 MEQ/1,000 ML BAG IV SCH ×2 (02:53→09:31)
[2019-06-21 04:22] LABS: Basophils # 0.1 10*3/uL (0.0-0.2); Basophils % 0.6 % (0.0-0.8); Eosinophils # 0.5 10*3/uL (0.0-0.87); Eosinophils % 3.2 % (0.00-10.9); Hematocrit 34.8 VOL% (42.0-52.0); Hemoglobin 11.2 GM/DL (14.0-18.0); Immature Granulocytes % 1.1 %; Immature Granulocytes Absolute 0.16 #; Lymphocytes # 1.2 10*3/uL (1.4-4.0); Lymphocytes % 8.4 % (21.2-54.2); Mean Corpuscular HGB Conc 32.2 GM/DL (32-36); Mean Corpuscular Volume 101.2 FL (87-102); Monocytes % 5.6 % (1.7-12.7); Neutrophils % 81.1 % (38.7-73.9); Platelet Count 365 T/CUMM (130-400); Red Blood Count 3.44 MC/CUMM (3.8-5.5); Red Cell Distribution Width 13.5 % (9.3-17.3)
[2019-06-21 04:53] LABS: Calcium 8.7 MG/DL (8.5-10.1); Osmolality,Calculated 318.9 MOS/KG (273-304)
[2019-06-21] MEDS: VANCOMYCIN INJ 1,500 MG in SODIUM CHLORIDE 0.9% 500 ML IV SCH (09:26)
[2019-06-21] MEDS: MAGNESIUM HYDROXIDE SUSP 30 ML UDCUP PO SCH (09:27)
[2019-06-21] MEDS: LACTULOSE 20 GM/30 ML UDCUP NG SCH ×2 (09:28→20:59)
[2019-06-21] MEDS: POLYETHYLENE GLYCOL POWDER 17 GM PACK PO SCH (09:28)
[2019-06-21] MEDS: amLODIPine 2.5 MG TABLET PO SCH (09:28)
[2019-06-21] MEDS: TAMSULOSIN 0.4 MG CAPSULE PO SCH (09:28)
[2019-06-21] MEDS: ENOXAPARIN 100 MG/ML SYRINGE SUBCUT SCH (09:28)
[2019-06-21] MEDS: DOCUSATE/SENNA 50-8.6 MG TABLET PEG SCH ×2 (09:29→20:58)
[2019-06-21] MEDS: ASPIRIN 325 MG TABLET PO SCH (09:29)
[2019-06-21] MEDS: LANSOPRAZOLE ODT 30 MG TABLET PO SCH (09:29)
[2019-06-21] MEDS: FINASTERIDE 5 MG TABLET PO SCH (09:29)
[2019-06-21] MEDS: NYSTATIN 500,000 UNIT/5 ML UDCUP SWISH/SWAL SCH ×4 (09:30→20:59)
[2019-06-21] MEDS: prednisoLONE ACETATE 1% OPH SUSP 5 ML BOTTLE LEFT EYE SCH (09:30)
[2019-06-21] MEDS: MOXIFLOXACIN 0.5% OPH SOLN 3 ML BOTTLE LEFT EYE SCH (09:31)
[2019-06-21] MEDS: NEPAFENAC 0.1% OPH SOLN 3 ML BOTTLE LEFT EYE SCH (09:31)
[2019-06-21] MEDS: AMOXICILLIN/CLAV ES 600 125 ML/BOTTLE PER TUBE SCH (18:14)
[2019-06-21] MEDS: APIXABAN 5 MG TABLET PEG SCH (20:58)
[2019-06-21] MEDS: ATORVASTATIN 40 MG TABLET PO SCH (20:58)
[2019-06-21] MEDS ORDERED: MORPHINE 4 MG/1 ML VIAL IV ONE (22:19)
[2019-06-22] MEDS: ALBUTEROL/IPRATROPIUM 3 ML NEB RESP TX SCH ×6 (03:00→23:00)
[2019-06-22 05:04] LABS: Basophils # 0.1 10*3/uL (0.0-0.2); Basophils % 0.4 % (0.0-0.8); Eosinophils # 0.4 10*3/uL (0.0-0.87); Eosinophils % 2.8 % (0.00-10.9); Hematocrit 36.2 VOL% (42.0-52.0); Hemoglobin 11.5 GM/DL (14.0-18.0); Immature Granulocytes % 0.6 %; Immature Granulocytes Absolute 0.08 #; Lymphocytes # 1.1 10*3/uL (1.4-4.0); Lymphocytes % 8.8 % (21.2-54.2); Mean Corpuscular HGB Conc 31.8 GM/DL (32-36); Mean Corpuscular Volume 101.7 FL (87-102); Mean Platelet Volume 11.4 FL (9.6-12.0); Monocytes % 4.5 % (1.7-12.7); Neutrophils % 82.9 % (38.7-73.9); Platelet Count 360 T/CUMM (130-400); Red Blood Count 3.56 MC/CUMM (3.8-5.5); Red Cell Distribution Width 13.5 % (9.3-17.3); White Blood Count 12.4 T/CUMM (4-12)
[2019-06-22] MEDS: DEXTROSE 5% KCL 20 MEQ 20 MEQ/1,000 ML BAG IV SCH ×2 (05:13→22:30)
[2019-06-22 05:20] LABS: Calcium 8.8 MG/DL (8.5-10.1)
[2019-06-22] MEDS: POTASSIUM CHLORIDE RIDER 10 MEQ in PREMIX 1 EACH IV PRN ×2 (09:15→17:32)
[2019-06-22] MEDS: NYSTATIN 500,000 UNIT/5 ML UDCUP SWISH/SWAL SCH ×4 (09:15→20:50)
[2019-06-22] MEDS: POLYETHYLENE GLYCOL POWDER 17 GM PACK PO SCH (09:15)
[2019-06-22] MEDS: MAGNESIUM HYDROXIDE SUSP 30 ML UDCUP PO SCH (09:16)
[2019-06-22] MEDS: FINASTERIDE 5 MG TABLET PO SCH (09:16)
[2019-06-22] MEDS: AMOXICILLIN/CLAV ES 600 125 ML/BOTTLE PER TUBE SCH ×2 (09:16→17:32)
[2019-06-22] MEDS: LACTULOSE 20 GM/30 ML UDCUP NG SCH ×2 (09:16→20:50)
[2019-06-22] MEDS: ASPIRIN 325 MG TABLET PO SCH (09:16)
[2019-06-22] MEDS: DOCUSATE/SENNA 50-8.6 MG TABLET PEG SCH ×2 (09:16→20:51)
[2019-06-22] MEDS: APIXABAN 5 MG TABLET PEG SCH ×2 (09:16→20:51)
[2019-06-22] MEDS: TAMSULOSIN 0.4 MG CAPSULE PO SCH (09:17)
[2019-06-22] MEDS: LANSOPRAZOLE ODT 30 MG TABLET PO SCH (09:17)
[2019-06-22] MEDS: MOXIFLOXACIN 0.5% OPH SOLN 3 ML BOTTLE LEFT EYE SCH (09:17)
[2019-06-22] MEDS: prednisoLONE ACETATE 1% OPH SUSP 5 ML BOTTLE LEFT EYE SCH (09:17)
[2019-06-22] MEDS: NEPAFENAC 0.1% OPH SOLN 3 ML BOTTLE LEFT EYE SCH (09:17)
[2019-06-22] MEDS: amLODIPine 2.5 MG TABLET PO SCH (09:17)
[2019-06-22] MEDS: ATORVASTATIN 40 MG TABLET PO SCH (20:51)
[2019-06-23] MEDS: DEXTROSE 5% KCL 20 MEQ 20 MEQ/1,000 ML BAG IV SCH (02:04)
[2019-06-23] MEDS: ALBUTEROL/IPRATROPIUM 3 ML NEB RESP TX SCH ×6 (03:06→23:40)
[2019-06-23 04:34] LABS: Basophils # 0.1 10*3/uL (0.0-0.2); Basophils % 0.5 % (0.0-0.8); Eosinophils # 0.4 10*3/uL (0.0-0.87); Eosinophils % 2.8 % (0.00-10.9); Hematocrit 34.1 VOL% (42.0-52.0); Hemoglobin 10.8 GM/DL (14.0-18.0); Immature Granulocytes % 0.5 %; Immature Granulocytes Absolute 0.07 #; Lymphocytes # 1.2 10*3/uL (1.4-4.0); Lymphocytes % 9.2 % (21.2-54.2); Mean Corpuscular HGB Conc 31.7 GM/DL (32-36); Mean Corpuscular Volume 102.1 FL (87-102); Mean Platelet Volume 11.3 FL (9.6-12.0); Platelet Count 354 T/CUMM (130-400); Red Blood Count 3.34 MC/CUMM (3.8-5.5); Red Cell Distribution Width 13.5 % (9.3-17.3); White Blood Count 12.9 T/CUMM (4-12)
[2019-06-23 04:46] LABS: Calcium 8.7 MG/DL (8.5-10.1); Osmolality,Calculated 314.3 MOS/KG (273-304)
[2019-06-23] MEDS: DOCUSATE/SENNA 50-8.6 MG TABLET PEG SCH ×2 (08:56→20:27)
[2019-06-23] MEDS: amLODIPine 2.5 MG TABLET PO SCH (08:56)
[2019-06-23] MEDS: MAGNESIUM HYDROXIDE SUSP 30 ML UDCUP PO SCH (08:57)
[2019-06-23] MEDS: FINASTERIDE 5 MG TABLET PO SCH (08:57)
[2019-06-23] MEDS: LANSOPRAZOLE ODT 30 MG TABLET PO SCH (08:57)
[2019-06-23] MEDS: ASPIRIN 325 MG TABLET PO SCH (08:57)
[2019-06-23] MEDS: APIXABAN 5 MG TABLET PEG SCH ×2 (08:57→20:27)
[2019-06-23] MEDS: TAMSULOSIN 0.4 MG CAPSULE PO SCH (08:57)
[2019-06-23] MEDS: LACTULOSE 20 GM/30 ML UDCUP NG SCH ×2 (08:58→20:28)
[2019-06-23] MEDS: prednisoLONE ACETATE 1% OPH SUSP 5 ML BOTTLE LEFT EYE SCH (08:58)
[2019-06-23] MEDS: NYSTATIN 500,000 UNIT/5 ML UDCUP SWISH/SWAL SCH ×4 (08:58→20:27)
[2019-06-23] MEDS: POLYETHYLENE GLYCOL POWDER 17 GM PACK PO SCH (08:58)
[2019-06-23] MEDS: NEPAFENAC 0.1% OPH SOLN 3 ML BOTTLE LEFT EYE SCH (08:58)
[2019-06-23] MEDS: AMOXICILLIN/CLAV ES 600 125 ML/BOTTLE PER TUBE SCH ×2 (08:58→17:05)
[2019-06-23] MEDS: MOXIFLOXACIN 0.5% OPH SOLN 3 ML BOTTLE LEFT EYE SCH (08:59)
[2019-06-23] MEDS: ATORVASTATIN 40 MG TABLET PO SCH (20:27)
[2019-06-24] MEDS: ONDANSETRON 4 MG/2 ML VIAL IV PRN (03:15)
[2019-06-24] MEDS: ALBUTEROL/IPRATROPIUM 3 ML NEB RESP TX SCH ×6 (03:44→23:55)
[2019-06-24 04:42] LABS: Basophils # 0.1 10*3/uL (0.0-0.2); Basophils % 0.5 % (0.0-0.8); Eosinophils # 0.5 10*3/uL (0.0-0.87); Eosinophils % 2.7 % (0.00-10.9); Hematocrit 35.9 VOL% (42.0-52.0); Hemoglobin 11.5 GM/DL (14.0-18.0); Immature Granulocytes % 0.6 %; Lymphocytes % 6.2 % (21.2-54.2); Mean Corpuscular Volume 102.3 FL (87-102); Mean Platelet Volume 11.7 FL (9.6-12.0); Monocytes % 3.3 % (1.7-12.7); Neutrophils % 86.7 % (38.7-73.9); Platelet Count 381 T/CUMM (130-400); Red Blood Count 3.51 MC/CUMM (3.8-5.5); Red Cell Distribution Width 13.4 % (9.3-17.3); White Blood Count 16.5 T/CUMM (4-12)
[2019-06-24 04:58] LABS: Osmolality,Calculated 311.7 MOS/KG (273-304)
[2019-06-24 04:59] LABS: Prealbumin 9.7 MG/DL (20-40)
[2019-06-24] MEDS: FINASTERIDE 5 MG TABLET PO SCH (10:15)
[2019-06-24] MEDS: TAMSULOSIN 0.4 MG CAPSULE PO SCH (10:15)
[2019-06-24] MEDS: LANSOPRAZOLE ODT 30 MG TABLET PO SCH (10:15)
[2019-06-24] MEDS: AMOXICILLIN/CLAV ES 600 125 ML/BOTTLE PER TUBE SCH (10:15)
[2019-06-24] MEDS: APIXABAN 5 MG TABLET PEG SCH ×2 (10:15→20:18)
[2019-06-24] MEDS: DOCUSATE/SENNA 50-8.6 MG TABLET PEG SCH ×2 (10:16→20:18)
[2019-06-24] MEDS: MOXIFLOXACIN 0.5% OPH SOLN 3 ML BOTTLE LEFT EYE SCH (10:17)
[2019-06-24] MEDS: MAGNESIUM HYDROXIDE SUSP 30 ML UDCUP PO SCH (10:17)
[2019-06-24] MEDS: NYSTATIN 500,000 UNIT/5 ML UDCUP SWISH/SWAL SCH ×5 (10:17→20:17)
[2019-06-24] MEDS: LACTULOSE 20 GM/30 ML UDCUP NG SCH ×2 (10:17→20:18)
[2019-06-24] MEDS: prednisoLONE ACETATE 1% OPH SUSP 5 ML BOTTLE LEFT EYE SCH (10:17)
[2019-06-24] MEDS: NEPAFENAC 0.1% OPH SOLN 3 ML BOTTLE LEFT EYE SCH (10:17)
[2019-06-24] MEDS: POLYETHYLENE GLYCOL POWDER 17 GM PACK PO SCH (10:17)
[2019-06-24] MEDS: ASPIRIN 325 MG TABLET PO SCH (10:31)
[2019-06-24] MEDS: amLODIPine 2.5 MG TABLET PO SCH (10:32)
[2019-06-24] MEDS: ACETAMINOPHEN 325 MG TABLET PO PRN (11:26)
[2019-06-24] MEDS ORDERED: ACETAMINOPHEN 325 MG TABLET PO ONE (11:42)
[2019-06-24] MEDS: CEFEPIME 2,000 MG in SODIUM CHLORIDE 0.9% 100 ML IV SCH ×2 (12:53→20:14)
[2019-06-24] MEDS: DEXTROSE 5% KCL 20 MEQ 20 MEQ/1,000 ML BAG IV SCH (15:35)
[2019-06-24] MEDS: MORPHINE 4 MG/1 ML VIAL IV PRN (15:40)
[2019-06-24 15:47] LABS: Apearance,Urine Clear (Clear); Urine Color Yellow (Yellow)
[2019-06-24 15:48] LABS: Glucose,Urine (UA) Negative (Negative); Ketones,Urine Negative (Negative); Nitrite,Urine Negative (Negative); Protein,Urine 30 MG/DL; Urine Specific Gravity 1.005 (1.001-1.035)
[2019-06-24 15:49] LABS: Bilirubin,Urine Negative (Negative); Blood, Urine 1+ mg/dL (Negative); RBC,Urine Occasional /HPF (0-4); Urine Urobilinogen 0.2 EU/DL (0.2-1.0); WBC,Urine Occasional /HPF (0-6)
[2019-06-24 15:50] LABS: Renal Epithelial Cells,Urine None Seen /HPF (<1); Squamous Epithelial Cell,Urine 1+ /HPF (0-10); Transitional Epi Cells,Urine None Seen /HPF (<1)
[2019-06-24] MEDS: ATORVASTATIN 40 MG TABLET PO SCH (20:19)
[2019-06-25] MEDS: ALBUTEROL/IPRATROPIUM 3 ML NEB RESP TX SCH ×5 (03:18→19:26)
[2019-06-25] MEDS: CEFEPIME 2,000 MG in SODIUM CHLORIDE 0.9% 100 ML IV SCH ×3 (05:55→21:00)
[2019-06-25] MEDS: TAMSULOSIN 0.4 MG CAPSULE PO SCH (09:06)
[2019-06-25] MEDS: DOCUSATE/SENNA 50-8.6 MG TABLET PEG SCH ×2 (09:06→21:10)
[2019-06-25] MEDS: amLODIPine 2.5 MG TABLET PO SCH (09:06)
[2019-06-25] MEDS: APIXABAN 5 MG TABLET PEG SCH ×2 (09:06→21:12)
[2019-06-25] MEDS: LANSOPRAZOLE ODT 30 MG TABLET PO SCH (09:07)
[2019-06-25] MEDS: FINASTERIDE 5 MG TABLET PO SCH (09:07)
[2019-06-25] MEDS: POLYETHYLENE GLYCOL POWDER 17 GM PACK PO SCH (09:07)
[2019-06-25] MEDS: NYSTATIN 500,000 UNIT/5 ML UDCUP SWISH/SWAL SCH ×5 (09:07→21:12)
[2019-06-25] MEDS: MAGNESIUM HYDROXIDE SUSP 30 ML UDCUP PO SCH (09:07)
[2019-06-25] MEDS: LACTULOSE 20 GM/30 ML UDCUP NG SCH (09:07)
[2019-06-25] MEDS: ASPIRIN 325 MG TABLET PO SCH (09:07)
[2019-06-25] MEDS: prednisoLONE ACETATE 1% OPH SUSP 5 ML BOTTLE LEFT EYE SCH (09:08)
[2019-06-25] MEDS: NEPAFENAC 0.1% OPH SOLN 3 ML BOTTLE LEFT EYE SCH (09:08)
[2019-06-25] MEDS: MOXIFLOXACIN 0.5% OPH SOLN 3 ML BOTTLE LEFT EYE SCH (09:08)
[2019-06-25] MEDS: DEXTROSE 5% KCL 20 MEQ 20 MEQ/1,000 ML BAG IV SCH ×2 (11:15→14:57)
[2019-06-25] MEDS: ONDANSETRON 4 MG/2 ML VIAL IV PRN ×2 (13:58→21:12)
[2019-06-25] MEDS: MORPHINE 4 MG/1 ML VIAL IV PRN (14:05)
[2019-06-25] MEDS: ATORVASTATIN 40 MG TABLET PO SCH (21:12)
[2019-06-25] MEDS: LACTULOSE 20 GM/30 ML UDCUP PO PRN (21:12)
[2019-06-26] MEDS: ALBUTEROL/IPRATROPIUM 3 ML NEB RESP TX SCH ×7 (00:04→23:59)
[2019-06-26 05:00] LABS: Basophils % 0.3 % (0.0-0.8); Eosinophils # 0.3 10*3/uL (0.0-0.87); Eosinophils % 2.8 % (0.00-10.9); Hematocrit 30.3 VOL% (42.0-52.0); Hemoglobin 9.5 GM/DL (14.0-18.0); Immature Granulocytes % 0.3 %; Immature Granulocytes Absolute 0.04 #; Lymphocytes # 0.9 10*3/uL (1.4-4.0); Lymphocytes % 7.5 % (21.2-54.2); Mean Corpuscular HGB Conc 31.4 GM/DL (32-36); Mean Corpuscular Volume 101.7 FL (87-102); Mean Platelet Volume 12.1 FL (9.6-12.0); Monocytes % 5.2 % (1.7-12.7); Neutrophils % 83.9 % (38.7-73.9); Platelet Count 263 T/CUMM (130-400); Red Blood Count 2.98 MC/CUMM (3.8-5.5); Red Cell Distribution Width 13.1 % (9.3-17.3); White Blood Count 11.7 T/CUMM (4-12)
[2019-06-26 05:15] LABS: Calcium 8.7 MG/DL (8.5-10.1)
[2019-06-26] MEDS: CEFEPIME 2,000 MG in SODIUM CHLORIDE 0.9% 100 ML IV SCH ×2 (06:00→13:53)
[2019-06-26] MEDS: MAGNESIUM HYDROXIDE SUSP 30 ML UDCUP PO SCH (09:56)
[2019-06-26] MEDS: DOCUSATE/SENNA 50-8.6 MG TABLET PEG SCH ×2 (09:57→21:01)
[2019-06-26] MEDS: APIXABAN 5 MG TABLET PEG SCH ×2 (09:57→21:01)
[2019-06-26] MEDS: POLYETHYLENE GLYCOL POWDER 17 GM PACK PO SCH (09:57)
[2019-06-26] MEDS: TAMSULOSIN 0.4 MG CAPSULE PO SCH (09:57)
[2019-06-26] MEDS: ASPIRIN 325 MG TABLET PO SCH (09:57)
[2019-06-26] MEDS: amLODIPine 2.5 MG TABLET PO SCH (09:58)
[2019-06-26] MEDS: NYSTATIN 500,000 UNIT/5 ML UDCUP SWISH/SWAL SCH ×3 (09:58→18:34)
[2019-06-26] MEDS: FINASTERIDE 5 MG TABLET PO SCH (09:58)
[2019-06-26] MEDS: LANSOPRAZOLE ODT 30 MG TABLET PO SCH (09:59)
[2019-06-26] MEDS: MOXIFLOXACIN 0.5% OPH SOLN 3 ML BOTTLE LEFT EYE SCH (09:59)
[2019-06-26] MEDS: prednisoLONE ACETATE 1% OPH SUSP 5 ML BOTTLE LEFT EYE SCH (09:59)
[2019-06-26] MEDS: NEPAFENAC 0.1% OPH SOLN 3 ML BOTTLE LEFT EYE SCH (09:59)
[2019-06-26] MEDS: ATORVASTATIN 40 MG TABLET PO SCH (21:01)
[2019-06-26] MEDS: DEXTROSE 5% KCL 20 MEQ 20 MEQ/1,000 ML BAG IV SCH (21:02)
[2019-06-26] MEDS: CEFEPIME 1,000 MG in SODIUM CHLORIDE 0.9% 100 ML IV SCH (21:11)
[2019-06-26] MEDS: MORPHINE 4 MG/1 ML VIAL IV PRN (22:29)
[2019-06-27] MEDS: ONDANSETRON 4 MG/2 ML VIAL IV PRN ×3 (00:16→21:07)
[2019-06-27] MEDS: LACTULOSE 20 GM/30 ML UDCUP PO PRN (00:18)
[2019-06-27] MEDS: ALBUTEROL/IPRATROPIUM 3 ML NEB RESP TX SCH ×5 (03:55→20:25)
[2019-06-27] MEDS: NYSTATIN 500,000 UNIT/5 ML UDCUP SWISH/SWAL SCH ×4 (04:38→16:20)
[2019-06-27] MEDS: CEFEPIME 1,000 MG in SODIUM CHLORIDE 0.9% 100 ML IV SCH ×4 (04:39→21:17)
[2019-06-27 05:44] LABS: Basophils # 0.1 10*3/uL (0.0-0.2); Basophils % 0.4 % (0.0-0.8); Eosinophils # 0.3 10*3/uL (0.0-0.87); Eosinophils % 2.6 % (0.00-10.9); Hematocrit 32.7 VOL% (42.0-52.0); Hemoglobin 10.4 GM/DL (14.0-18.0); Immature Granulocytes % 0.5 %; Immature Granulocytes Absolute 0.06 #; Lymphocytes # 0.7 10*3/uL (1.4-4.0); Lymphocytes % 5.4 % (21.2-54.2); Mean Corpuscular HGB Conc 31.8 GM/DL (32-36); Mean Corpuscular Volume 100.9 FL (87-102); Mean Platelet Volume 12.1 FL (9.6-12.0); Monocytes % 4.6 % (1.7-12.7); Neutrophils % 86.5 % (38.7-73.9); Platelet Count 302 T/CUMM (130-400); Red Blood Count 3.24 MC/CUMM (3.8-5.5); White Blood Count 13.1 T/CUMM (4-12)
[2019-06-27 06:11] LABS: Calcium 9.2 MG/DL (8.5-10.1); Osmolality,Calculated 301.3 MOS/KG (273-304); Prealbumin 12.2 MG/DL (20-40)
[2019-06-27] MEDS: MAGNESIUM HYDROXIDE SUSP 30 ML UDCUP PO SCH (09:31)
[2019-06-27] MEDS: POLYETHYLENE GLYCOL POWDER 17 GM PACK PO SCH (09:32)
[2019-06-27] MEDS: TAMSULOSIN 0.4 MG CAPSULE PO SCH (09:32)
[2019-06-27] MEDS: LANSOPRAZOLE ODT 30 MG TABLET PO SCH (09:32)
[2019-06-27] MEDS: DOCUSATE/SENNA 50-8.6 MG TABLET PEG SCH (09:32)
[2019-06-27] MEDS: ASPIRIN 325 MG TABLET PO SCH (09:32)
[2019-06-27] MEDS: APIXABAN 5 MG TABLET PEG SCH ×2 (09:32→21:04)
[2019-06-27] MEDS: amLODIPine 2.5 MG TABLET PO SCH (09:32)
[2019-06-27] MEDS: MOXIFLOXACIN 0.5% OPH SOLN 3 ML BOTTLE LEFT EYE SCH (09:33)
[2019-06-27] MEDS: FINASTERIDE 5 MG TABLET PO SCH (09:33)
[2019-06-27] MEDS: NEPAFENAC 0.1% OPH SOLN 3 ML BOTTLE LEFT EYE SCH (09:34)
[2019-06-27] MEDS: prednisoLONE ACETATE 1% OPH SUSP 5 ML BOTTLE LEFT EYE SCH (09:34)
[2019-06-27] MEDS: DEXTROSE 5% KCL 20 MEQ 20 MEQ/1,000 ML BAG IV SCH (21:00)
[2019-06-28] MEDS: ALBUTEROL/IPRATROPIUM 3 ML NEB RESP TX SCH ×7 (00:01→23:42)
[2019-06-28] MEDS: CEFEPIME 1,000 MG in SODIUM CHLORIDE 0.9% 100 ML IV SCH ×4 (03:09→20:40)
[2019-06-28] MEDS: DOCUSATE/SENNA 50-8.6 MG TABLET PEG SCH ×3 (03:09→20:45)
[2019-06-28] MEDS: NYSTATIN 500,000 UNIT/5 ML UDCUP SWISH/SWAL SCH ×5 (03:09→20:44)
[2019-06-28] MEDS: ATORVASTATIN 40 MG TABLET PO SCH ×2 (03:10→20:45)
[2019-06-28 04:49] LABS: Basophils # 0.1 10*3/uL (0.0-0.2); Basophils % 0.4 % (0.0-0.8); Eosinophils # 0.4 10*3/uL (0.0-0.87); Eosinophils % 3.2 % (0.00-10.9); Hematocrit 29.7 VOL% (42.0-52.0); Hemoglobin 9.5 GM/DL (14.0-18.0); Immature Granulocytes % 0.5 %; Immature Granulocytes Absolute 0.06 #; Lymphocytes # 0.9 10*3/uL (1.4-4.0); Lymphocytes % 7.6 % (21.2-54.2); Mean Corpuscular Volume 100.7 FL (87-102); Mean Platelet Volume 11.8 FL (9.6-12.0); Monocytes % 6.2 % (1.7-12.7); Neutrophils % 82.1 % (38.7-73.9); Platelet Count 282 T/CUMM (130-400); Red Blood Count 2.95 MC/CUMM (3.8-5.5); Red Cell Distribution Width 12.7 % (9.3-17.3); White Blood Count 11.8 T/CUMM (4-12)
[2019-06-28] MEDS: ONDANSETRON 4 MG/2 ML VIAL IV PRN (09:19)
[2019-06-28] MEDS: MAGNESIUM HYDROXIDE SUSP 30 ML UDCUP PO SCH (09:23)
[2019-06-28] MEDS: amLODIPine 2.5 MG TABLET PO SCH (09:23)
[2019-06-28] MEDS: ASPIRIN 325 MG TABLET PO SCH (09:23)
[2019-06-28] MEDS: POLYETHYLENE GLYCOL POWDER 17 GM PACK PO SCH (09:23)
[2019-06-28] MEDS: APIXABAN 5 MG TABLET PEG SCH ×2 (09:23→20:45)
[2019-06-28] MEDS: FINASTERIDE 5 MG TABLET PO SCH (09:23)
[2019-06-28] MEDS: TAMSULOSIN 0.4 MG CAPSULE PO SCH (09:23)
[2019-06-28] MEDS: LANSOPRAZOLE ODT 30 MG TABLET PO SCH (09:23)
[2019-06-28] MEDS: NEPAFENAC 0.1% OPH SOLN 3 ML BOTTLE LEFT EYE SCH (09:24)
[2019-06-28] MEDS: MOXIFLOXACIN 0.5% OPH SOLN 3 ML BOTTLE LEFT EYE SCH (09:24)
[2019-06-28] MEDS: LACTULOSE 20 GM/30 ML UDCUP PO PRN (09:25)
[2019-06-28] MEDS: prednisoLONE ACETATE 1% OPH SUSP 5 ML BOTTLE LEFT EYE SCH (09:25)
[2019-06-28] MEDS ORDERED: METOCLOPRAMIDE 10 MG/2 ML VIAL ONE (10:09)
[2019-06-28] MEDS ORDERED: ALBUTEROL/IPRATROPIUM 3 ML NEB RESP TX PRN (10:12)
[2019-06-28] MEDS ORDERED: METOCLOPRAMIDE 10 MG/2 ML VIAL IV ONE (10:14)
[2019-06-28] MEDS: MORPHINE 4 MG/1 ML VIAL IV PRN (10:20)
[2019-06-28] MEDS: LACTULOSE 20 GM/30 ML UDCUP PO SCH ×2 (15:55→20:43)
[2019-06-28] MEDS: DEXTROSE 5% KCL 20 MEQ 20 MEQ/1,000 ML BAG IV SCH (20:41)
[2019-06-29] MEDS: CEFEPIME 1,000 MG in SODIUM CHLORIDE 0.9% 100 ML IV SCH ×4 (02:36→21:15)
[2019-06-29] MEDS: ALBUTEROL/IPRATROPIUM 3 ML NEB RESP TX SCH ×5 (03:25→19:25)
[2019-06-29 04:50] LABS: Basophils # 0.1 10*3/uL (0.0-0.2); Basophils % 0.5 % (0.0-0.8); Eosinophils # 0.4 10*3/uL (0.0-0.87); Eosinophils % 2.8 % (0.00-10.9); Hematocrit 28.2 VOL% (42.0-52.0); Hemoglobin 9.3 GM/DL (14.0-18.0); Immature Granulocytes % 0.5 %; Immature Granulocytes Absolute 0.07 #; Lymphocytes # 1.1 10*3/uL (1.4-4.0); Lymphocytes % 8.5 % (21.2-54.2); Mean Corpuscular Volume 99.6 FL (87-102); Mean Platelet Volume 11.8 FL (9.6-12.0); Monocytes % 5.5 % (1.7-12.7); Neutrophils % 82.2 % (38.7-73.9); Platelet Count 273 T/CUMM (130-400); Red Blood Count 2.83 MC/CUMM (3.8-5.5); Red Cell Distribution Width 12.6 % (9.3-17.3); White Blood Count 13.4 T/CUMM (4-12)
[2019-06-29 05:22] LABS: Calcium 8.6 MG/DL (8.5-10.1); Osmolality,Calculated 296.6 MOS/KG (273-304)
[2019-06-29] MEDS: MORPHINE 4 MG/1 ML VIAL IV PRN ×2 (08:12→23:45)
[2019-06-29] MEDS: LACTULOSE 20 GM/30 ML UDCUP PO SCH ×3 (08:14→21:15)
[2019-06-29] MEDS: amLODIPine 2.5 MG TABLET PO SCH (08:14)
[2019-06-29] MEDS: DOCUSATE/SENNA 50-8.6 MG TABLET PEG SCH ×2 (08:14→21:15)
[2019-06-29] MEDS: POLYETHYLENE GLYCOL POWDER 17 GM PACK PO SCH (08:14)
[2019-06-29] MEDS: MAGNESIUM HYDROXIDE SUSP 30 ML UDCUP PO SCH (08:14)
[2019-06-29] MEDS: APIXABAN 5 MG TABLET PEG SCH ×2 (08:15→21:15)
[2019-06-29] MEDS: FINASTERIDE 5 MG TABLET PO SCH (08:15)
[2019-06-29] MEDS: ASPIRIN 325 MG TABLET PO SCH (08:15)
[2019-06-29] MEDS: NYSTATIN 500,000 UNIT/5 ML UDCUP SWISH/SWAL SCH ×4 (08:15→23:00)
[2019-06-29] MEDS: LANSOPRAZOLE ODT 30 MG TABLET PO SCH (08:15)
[2019-06-29] MEDS: TAMSULOSIN 0.4 MG CAPSULE PO SCH (08:15)
[2019-06-29] MEDS: MOXIFLOXACIN 0.5% OPH SOLN 3 ML BOTTLE LEFT EYE SCH (08:16)
[2019-06-29] MEDS: prednisoLONE ACETATE 1% OPH SUSP 5 ML BOTTLE LEFT EYE SCH (08:16)
[2019-06-29] MEDS: NEPAFENAC 0.1% OPH SOLN 3 ML BOTTLE LEFT EYE SCH (08:16)
[2019-06-29] MEDS: ATORVASTATIN 40 MG TABLET PO SCH (21:15)
[2019-06-29] MEDS: DEXTROSE 5% KCL 20 MEQ 20 MEQ/1,000 ML BAG IV SCH (21:15)
[2019-06-29] MEDS: ONDANSETRON 4 MG/2 ML VIAL IV PRN (23:45)
[2019-06-30] MEDS: ALBUTEROL/IPRATROPIUM 3 ML NEB RESP TX SCH ×7 (00:25→23:19)
[2019-06-30] MEDS: CEFEPIME 1,000 MG in SODIUM CHLORIDE 0.9% 100 ML IV SCH ×4 (01:45→20:25)
[2019-06-30] MEDS: MORPHINE 4 MG/1 ML VIAL IV PRN (06:15)
[2019-06-30] MEDS: TAMSULOSIN 0.4 MG CAPSULE PO SCH (08:43)
[2019-06-30] MEDS: FINASTERIDE 5 MG TABLET PO SCH (08:43)
[2019-06-30] MEDS: LACTULOSE 20 GM/30 ML UDCUP PO SCH ×3 (08:43→20:25)
[2019-06-30] MEDS: ASPIRIN 325 MG TABLET PO SCH (08:43)
[2019-06-30] MEDS: POLYETHYLENE GLYCOL POWDER 17 GM PACK PO SCH (08:43)
[2019-06-30] MEDS: MAGNESIUM HYDROXIDE SUSP 30 ML UDCUP PO SCH (08:43)
[2019-06-30] MEDS: amLODIPine 2.5 MG TABLET PO SCH (08:44)
[2019-06-30] MEDS: DOCUSATE/SENNA 50-8.6 MG TABLET PEG SCH ×2 (08:44→20:25)
[2019-06-30] MEDS: NYSTATIN 500,000 UNIT/5 ML UDCUP SWISH/SWAL SCH ×4 (08:44→20:52)
[2019-06-30] MEDS: APIXABAN 5 MG TABLET PEG SCH ×2 (08:44→20:25)
[2019-06-30] MEDS: LANSOPRAZOLE ODT 30 MG TABLET PO SCH (08:45)
[2019-06-30] MEDS: prednisoLONE ACETATE 1% OPH SUSP 5 ML BOTTLE LEFT EYE SCH (09:05)
[2019-06-30] MEDS: NEPAFENAC 0.1% OPH SOLN 3 ML BOTTLE LEFT EYE SCH (09:05)
[2019-06-30] MEDS: MOXIFLOXACIN 0.5% OPH SOLN 3 ML BOTTLE LEFT EYE SCH (09:05)
[2019-06-30] MEDS: DEXTROSE 5% KCL 20 MEQ 20 MEQ/1,000 ML BAG IV SCH (18:29)
[2019-06-30] MEDS: CITALOPRAM 20 MG TABLET PO SCH (20:25)
[2019-06-30] MEDS: ATORVASTATIN 40 MG TABLET PO SCH (20:25)
[2019-07-01] MEDS: CEFEPIME 1,000 MG in SODIUM CHLORIDE 0.9% 100 ML IV SCH ×4 (02:15→20:15)
[2019-07-01] MEDS: ALBUTEROL/IPRATROPIUM 3 ML NEB RESP TX SCH ×5 (03:11→18:59)
[2019-07-01 05:52] LABS: Calcium 8.6 MG/DL (8.5-10.1); Osmolality,Calculated 283.3 MOS/KG (273-304)
[2019-07-01] MEDS: APIXABAN 5 MG TABLET PEG SCH ×2 (08:41→21:35)
[2019-07-01] MEDS: LANSOPRAZOLE ODT 30 MG TABLET PO SCH (08:41)
[2019-07-01] MEDS: FINASTERIDE 5 MG TABLET PO SCH (08:41)
[2019-07-01] MEDS: ASPIRIN 325 MG TABLET PO SCH (08:41)
[2019-07-01] MEDS: DOCUSATE/SENNA 50-8.6 MG TABLET PEG SCH ×2 (08:41→21:38)
[2019-07-01] MEDS: TAMSULOSIN 0.4 MG CAPSULE PO SCH (08:41)
[2019-07-01] MEDS: amLODIPine 2.5 MG TABLET PO SCH (08:41)
[2019-07-01] MEDS: MOXIFLOXACIN 0.5% OPH SOLN 3 ML BOTTLE LEFT EYE SCH (08:54)
[2019-07-01] MEDS: NEPAFENAC 0.1% OPH SOLN 3 ML BOTTLE LEFT EYE SCH (08:54)
[2019-07-01] MEDS: prednisoLONE ACETATE 1% OPH SUSP 5 ML BOTTLE LEFT EYE SCH (08:55)
[2019-07-01] MEDS: POLYETHYLENE GLYCOL POWDER 17 GM PACK PO SCH (09:17)
[2019-07-01] MEDS: LACTULOSE 20 GM/30 ML UDCUP PO SCH ×3 (09:17→21:45)
[2019-07-01] MEDS: MAGNESIUM HYDROXIDE SUSP 30 ML UDCUP PO SCH (09:17)
[2019-07-01] MEDS: NYSTATIN 500,000 UNIT/5 ML UDCUP SWISH/SWAL SCH ×4 (09:18→21:44)
[2019-07-01] MEDS: DEXTROSE 5% KCL 20 MEQ 20 MEQ/1,000 ML BAG IV SCH (17:13)
[2019-07-01] MEDS: METOCLOPRAMIDE 10 MG/2 ML VIAL IV SCH (17:56)
[2019-07-01] MEDS: MENTHOL/ZINC OXIDE OINT 71 GM JAR TOP SCH (21:35)
[2019-07-01] MEDS: ATORVASTATIN 40 MG TABLET PO SCH (21:35)
[2019-07-01] MEDS: CITALOPRAM 20 MG TABLET PO SCH (21:35)
[2019-07-02] MEDS: ALBUTEROL/IPRATROPIUM 3 ML NEB RESP TX SCH ×6 (00:11→19:20)
[2019-07-02] MEDS: CEFEPIME 1,000 MG in SODIUM CHLORIDE 0.9% 100 ML IV SCH ×4 (00:45→21:31)
[2019-07-02] MEDS: METOCLOPRAMIDE 10 MG/2 ML VIAL IV SCH ×4 (01:15→17:21)
[2019-07-02] MEDS: prednisoLONE ACETATE 1% OPH SUSP 5 ML BOTTLE LEFT EYE SCH (09:17)
[2019-07-02] MEDS: MOXIFLOXACIN 0.5% OPH SOLN 3 ML BOTTLE LEFT EYE SCH (09:18)
[2019-07-02] MEDS: NEPAFENAC 0.1% OPH SOLN 3 ML BOTTLE LEFT EYE SCH (09:18)
[2019-07-02] MEDS: ASPIRIN 325 MG TABLET PO SCH (09:18)
[2019-07-02] MEDS: LACTULOSE 20 GM/30 ML UDCUP PO SCH ×3 (09:19→21:46)
[2019-07-02] MEDS: TAMSULOSIN 0.4 MG CAPSULE PO SCH (09:19)
[2019-07-02] MEDS: MAGNESIUM HYDROXIDE SUSP 30 ML UDCUP PO SCH (09:19)
[2019-07-02] MEDS: MENTHOL/ZINC OXIDE OINT 71 GM JAR TOP SCH ×2 (09:19→21:42)
[2019-07-02] MEDS: NYSTATIN 500,000 UNIT/5 ML UDCUP SWISH/SWAL SCH ×4 (09:19→21:00)
[2019-07-02] MEDS: POLYETHYLENE GLYCOL POWDER 17 GM PACK PO SCH (09:19)
[2019-07-02] MEDS: amLODIPine 2.5 MG TABLET PO SCH (09:20)
[2019-07-02] MEDS: FINASTERIDE 5 MG TABLET PO SCH (09:20)
[2019-07-02] MEDS: LANSOPRAZOLE ODT 30 MG TABLET PO SCH (09:20)
[2019-07-02] MEDS: APIXABAN 5 MG TABLET PEG SCH ×2 (09:20→21:35)
[2019-07-02] MEDS: DOCUSATE/SENNA 50-8.6 MG TABLET PEG SCH ×2 (09:20→21:00)
[2019-07-02] MEDS: DEXTROSE 5% KCL 20 MEQ 20 MEQ/1,000 ML BAG IV SCH (15:04)
[2019-07-02] MEDS: ATORVASTATIN 40 MG TABLET PO SCH (21:35)
[2019-07-02] MEDS: CITALOPRAM 20 MG TABLET PO SCH (21:35)
[2019-07-03] MEDS: ALBUTEROL/IPRATROPIUM 3 ML NEB RESP TX SCH ×7 (00:40→23:47)
[2019-07-03] MEDS: METOCLOPRAMIDE 10 MG/2 ML VIAL IV SCH ×4 (01:04→17:37)
[2019-07-03] MEDS: CEFEPIME 1,000 MG in SODIUM CHLORIDE 0.9% 100 ML IV SCH ×4 (01:08→20:45)
[2019-07-03] MEDS: LACTULOSE 20 GM/30 ML UDCUP PO SCH ×3 (09:32→20:45)
[2019-07-03] MEDS: DEXTROSE 5% KCL 20 MEQ 20 MEQ/1,000 ML BAG IV SCH (09:32)
[2019-07-03] MEDS: TAMSULOSIN 0.4 MG CAPSULE PO SCH (09:33)
[2019-07-03] MEDS: APIXABAN 5 MG TABLET PEG SCH ×2 (09:33→20:45)
[2019-07-03] MEDS: MAGNESIUM HYDROXIDE SUSP 30 ML UDCUP PO SCH (09:33)
[2019-07-03] MEDS: FINASTERIDE 5 MG TABLET PO SCH (09:33)
[2019-07-03] MEDS: POLYETHYLENE GLYCOL POWDER 17 GM PACK PO SCH (09:33)
[2019-07-03] MEDS: DOCUSATE/SENNA 50-8.6 MG TABLET PEG SCH ×2 (09:33→20:44)
[2019-07-03] MEDS: ASPIRIN 325 MG TABLET PO SCH (09:34)
[2019-07-03] MEDS: prednisoLONE ACETATE 1% OPH SUSP 5 ML BOTTLE LEFT EYE SCH (09:34)
[2019-07-03] MEDS: NEPAFENAC 0.1% OPH SOLN 3 ML BOTTLE LEFT EYE SCH (09:34)
[2019-07-03] MEDS: MENTHOL/ZINC OXIDE OINT 71 GM JAR TOP SCH ×2 (09:34→20:45)
[2019-07-03] MEDS: NYSTATIN 500,000 UNIT/5 ML UDCUP SWISH/SWAL SCH ×4 (09:34→20:44)
[2019-07-03] MEDS: amLODIPine 2.5 MG TABLET PO SCH (09:34)
[2019-07-03] MEDS: MOXIFLOXACIN 0.5% OPH SOLN 3 ML BOTTLE LEFT EYE SCH (09:35)
[2019-07-03] MEDS: LANSOPRAZOLE ODT 30 MG TABLET PO SCH (09:35)
[2019-07-03] MEDS: CITALOPRAM 20 MG TABLET PO SCH (20:44)
[2019-07-03] MEDS: ATORVASTATIN 40 MG TABLET PO SCH (20:45)
[2019-07-04] MEDS: METOCLOPRAMIDE 10 MG/2 ML VIAL IV SCH ×5 (00:30→23:57)
[2019-07-04] MEDS: CEFEPIME 1,000 MG in SODIUM CHLORIDE 0.9% 100 ML IV SCH (02:51)
[2019-07-04] MEDS: ALBUTEROL/IPRATROPIUM 3 ML NEB RESP TX SCH ×5 (03:22→20:00)
[2019-07-04] MEDS: LACTULOSE 20 GM/30 ML UDCUP PO SCH ×3 (08:58→20:36)
[2019-07-04] MEDS: POLYETHYLENE GLYCOL POWDER 17 GM PACK PO SCH (08:58)
[2019-07-04] MEDS: MAGNESIUM HYDROXIDE SUSP 30 ML UDCUP PO SCH (08:58)
[2019-07-04] MEDS: NYSTATIN 500,000 UNIT/5 ML UDCUP SWISH/SWAL SCH ×4 (08:58→20:36)
[2019-07-04] MEDS: LANSOPRAZOLE ODT 30 MG TABLET PO SCH (08:59)
[2019-07-04] MEDS: APIXABAN 5 MG TABLET PEG SCH ×2 (08:59→20:37)
[2019-07-04] MEDS: DOCUSATE/SENNA 50-8.6 MG TABLET PEG SCH ×2 (08:59→20:37)
[2019-07-04] MEDS: amLODIPine 2.5 MG TABLET PO SCH (08:59)
[2019-07-04] MEDS: TAMSULOSIN 0.4 MG CAPSULE PO SCH (08:59)
[2019-07-04] MEDS: FINASTERIDE 5 MG TABLET PO SCH (08:59)
[2019-07-04] MEDS: ASPIRIN 325 MG TABLET PO SCH (08:59)
[2019-07-04] MEDS: MENTHOL/ZINC OXIDE OINT 71 GM JAR TOP SCH ×2 (09:00→20:39)
[2019-07-04] MEDS: prednisoLONE ACETATE 1% OPH SUSP 5 ML BOTTLE LEFT EYE SCH (09:00)
[2019-07-04] MEDS: MOXIFLOXACIN 0.5% OPH SOLN 3 ML BOTTLE LEFT EYE SCH (09:00)
[2019-07-04] MEDS: NEPAFENAC 0.1% OPH SOLN 3 ML BOTTLE LEFT EYE SCH (09:00)
[2019-07-04] MEDS: DEXTROSE 5% KCL 20 MEQ 20 MEQ/1,000 ML BAG IV SCH (17:09)
[2019-07-04] MEDS: ATORVASTATIN 40 MG TABLET PO SCH (20:37)
[2019-07-04] MEDS: CITALOPRAM 20 MG TABLET PO SCH (20:37)
[2019-07-05] MEDS: ALBUTEROL/IPRATROPIUM 3 ML NEB RESP TX SCH ×7 (00:20→23:20)
[2019-07-05] MEDS: METOCLOPRAMIDE 10 MG/2 ML VIAL IV SCH ×4 (06:47→23:32)
[2019-07-05] MEDS: TAMSULOSIN 0.4 MG CAPSULE PO SCH (09:37)
[2019-07-05] MEDS: FINASTERIDE 5 MG TABLET PO SCH (09:37)
[2019-07-05] MEDS: MENTHOL/ZINC OXIDE OINT 71 GM JAR TOP SCH ×2 (09:37→22:08)
[2019-07-05] MEDS: MAGNESIUM HYDROXIDE SUSP 30 ML UDCUP PO SCH (09:37)
[2019-07-05] MEDS: DOCUSATE/SENNA 50-8.6 MG TABLET PEG SCH ×2 (09:37→22:19)
[2019-07-05] MEDS: APIXABAN 5 MG TABLET PEG SCH ×2 (09:37→22:18)
[2019-07-05] MEDS: amLODIPine 2.5 MG TABLET PO SCH (09:37)
[2019-07-05] MEDS: LANSOPRAZOLE ODT 30 MG TABLET PO SCH (09:37)
[2019-07-05] MEDS: ASPIRIN 325 MG TABLET PO SCH (09:37)
[2019-07-05] MEDS: MOXIFLOXACIN 0.5% OPH SOLN 3 ML BOTTLE LEFT EYE SCH (09:38)
[2019-07-05] MEDS: NEPAFENAC 0.1% OPH SOLN 3 ML BOTTLE LEFT EYE SCH (09:38)
[2019-07-05] MEDS: NYSTATIN 500,000 UNIT/5 ML UDCUP SWISH/SWAL SCH ×3 (09:38→22:09)
[2019-07-05] MEDS: prednisoLONE ACETATE 1% OPH SUSP 5 ML BOTTLE LEFT EYE SCH (09:38)
[2019-07-05] MEDS: LACTULOSE 20 GM/30 ML UDCUP PO SCH ×3 (09:38→22:08)
[2019-07-05] MEDS: POLYETHYLENE GLYCOL POWDER 17 GM PACK PO SCH (09:38)
[2019-07-05] MEDS: ACETAMINOPHEN 325 MG TABLET PO PRN (11:21)
[2019-07-05] MEDS: DEXTROSE 5% KCL 20 MEQ 20 MEQ/1,000 ML BAG IV SCH (12:35)
[2019-07-05] MEDS: CITALOPRAM 20 MG TABLET PO SCH (22:17)
[2019-07-05] MEDS: ATORVASTATIN 40 MG TABLET PO SCH (22:18)
[2019-07-06] MEDS: ALBUTEROL/IPRATROPIUM 3 ML NEB RESP TX SCH ×6 (03:23→23:53)
[2019-07-06] MEDS: METOCLOPRAMIDE 10 MG/2 ML VIAL IV SCH ×4 (05:27→23:02)
[2019-07-06 06:04] LABS: Basophils # 0.1 10*3/uL (0.0-0.2); Basophils % 0.5 % (0.0-0.8); Eosinophils # 0.3 10*3/uL (0.0-0.87); Eosinophils % 3.1 % (0.00-10.9); Hematocrit 28.3 VOL% (42.0-52.0); Hemoglobin 9.7 GM/DL (14.0-18.0); Immature Granulocytes % 0.6 %; Immature Granulocytes Absolute 0.06 #; Lymphocytes # 1.1 10*3/uL (1.4-4.0); Lymphocytes % 11.7 % (21.2-54.2); Mean Corpuscular HGB Conc 34.3 GM/DL (32-36); Mean Corpuscular Volume 93.7 FL (87-102); Mean Platelet Volume 10.3 FL (9.6-12.0); Neutrophils % 76.1 % (38.7-73.9); Platelet Count 300 T/CUMM (130-400); Red Blood Count 3.02 MC/CUMM (3.8-5.5); Red Cell Distribution Width 12.3 % (9.3-17.3); White Blood Count 9.5 T/CUMM (4-12)
[2019-07-06] MEDS: FINASTERIDE 5 MG TABLET PO SCH (09:16)
[2019-07-06] MEDS: TAMSULOSIN 0.4 MG CAPSULE PO SCH (09:16)
[2019-07-06] MEDS: amLODIPine 2.5 MG TABLET PO SCH (09:16)
[2019-07-06] MEDS: ASPIRIN 325 MG TABLET PO SCH (09:17)
[2019-07-06] MEDS: APIXABAN 5 MG TABLET PEG SCH ×2 (09:17→22:13)
[2019-07-06] MEDS: prednisoLONE ACETATE 1% OPH SUSP 5 ML BOTTLE LEFT EYE SCH (09:17)
[2019-07-06] MEDS: MOXIFLOXACIN 0.5% OPH SOLN 3 ML BOTTLE LEFT EYE SCH (09:17)
[2019-07-06] MEDS: NEPAFENAC 0.1% OPH SOLN 3 ML BOTTLE LEFT EYE SCH (09:17)
[2019-07-06] MEDS: LANSOPRAZOLE ODT 30 MG TABLET PO SCH (09:17)
[2019-07-06] MEDS: MENTHOL/ZINC OXIDE OINT 71 GM JAR TOP SCH ×2 (09:18→22:13)
[2019-07-06] MEDS: NYSTATIN 500,000 UNIT/5 ML UDCUP SWISH/SWAL SCH ×4 (09:18→21:11)
[2019-07-06] MEDS: MAGNESIUM HYDROXIDE SUSP 30 ML UDCUP PO SCH (09:18)
[2019-07-06] MEDS: POLYETHYLENE GLYCOL POWDER 17 GM PACK PO SCH (09:18)
[2019-07-06] MEDS: LACTULOSE 20 GM/30 ML UDCUP PO SCH ×3 (09:18→21:10)
[2019-07-06] MEDS: DEXTROSE 5% KCL 20 MEQ 20 MEQ/1,000 ML BAG IV SCH (09:19)
[2019-07-06] MEDS: DOCUSATE/SENNA 50-8.6 MG TABLET PEG SCH ×2 (09:19→21:10)
[2019-07-06] MEDS: CITALOPRAM 20 MG TABLET PO SCH (22:12)
[2019-07-06] MEDS: ATORVASTATIN 40 MG TABLET PO SCH (22:13)
[2019-07-07] MEDS: ONDANSETRON 4 MG/2 ML VIAL IV PRN (01:22)
[2019-07-07] MEDS ORDERED: PANTOPRAZOLE 40 MG VIAL IV ONE (02:14)
[2019-07-07] MEDS: ACETAMINOPHEN 325 MG TABLET PO PRN ×2 (02:28→07:25)
[2019-07-07] MEDS: ALBUTEROL/IPRATROPIUM 3 ML NEB RESP TX SCH ×5 (03:54→20:02)
[2019-07-07] MEDS: METOCLOPRAMIDE 10 MG/2 ML VIAL IV SCH ×3 (05:58→17:59)
[2019-07-07] MEDS: TAMSULOSIN 0.4 MG CAPSULE PO SCH (09:39)
[2019-07-07] MEDS: NYSTATIN 500,000 UNIT/5 ML UDCUP SWISH/SWAL SCH ×4 (09:39→21:04)
[2019-07-07] MEDS: APIXABAN 5 MG TABLET PEG SCH ×2 (09:39→21:03)
[2019-07-07] MEDS: FINASTERIDE 5 MG TABLET PO SCH (09:39)
[2019-07-07] MEDS: ASPIRIN 325 MG TABLET PO SCH (09:39)
[2019-07-07] MEDS: amLODIPine 2.5 MG TABLET PO SCH (09:39)
[2019-07-07] MEDS: NEPAFENAC 0.1% OPH SOLN 3 ML BOTTLE LEFT EYE SCH (09:40)
[2019-07-07] MEDS: MOXIFLOXACIN 0.5% OPH SOLN 3 ML BOTTLE LEFT EYE SCH (09:40)
[2019-07-07] MEDS: prednisoLONE ACETATE 1% OPH SUSP 5 ML BOTTLE LEFT EYE SCH (09:40)
[2019-07-07] MEDS: PANTOPRAZOLE 40 MG VIAL IV SCH (09:42)
[2019-07-07] MEDS: LACTULOSE 20 GM/30 ML UDCUP PO SCH ×3 (09:57→21:03)
[2019-07-07] MEDS: MENTHOL/ZINC OXIDE OINT 71 GM JAR TOP SCH ×2 (09:57→21:05)
[2019-07-07] MEDS: MAGNESIUM HYDROXIDE SUSP 30 ML UDCUP PO SCH (09:57)
[2019-07-07] MEDS: POLYETHYLENE GLYCOL POWDER 17 GM PACK PO SCH (09:58)
[2019-07-07] MEDS: DOCUSATE/SENNA 50-8.6 MG TABLET PEG SCH ×2 (09:58→21:04)
[2019-07-07] MEDS: LANSOPRAZOLE ODT 30 MG TABLET PO SCH (10:01)
[2019-07-07] MEDS: DEXTROSE 5% KCL 20 MEQ 20 MEQ/1,000 ML BAG IV SCH (15:23)
[2019-07-07] MEDS: CITALOPRAM 20 MG TABLET PO SCH (21:03)
[2019-07-07] MEDS: ATORVASTATIN 40 MG TABLET PO SCH (21:04)
[2019-07-08] MEDS: ALBUTEROL/IPRATROPIUM 3 ML NEB RESP TX SCH ×7 (00:10→23:57)
[2019-07-08] MEDS: METOCLOPRAMIDE 10 MG/2 ML VIAL IV SCH ×4 (00:13→17:50)
[2019-07-08 05:55] LABS: Calcium 8.8 MG/DL (8.5-10.1); Osmolality,Calculated 285.5 MOS/KG (273-304); Prealbumin 13.8 MG/DL (20-40)
[2019-07-08] MEDS: ASPIRIN 325 MG TABLET PO SCH (09:55)
[2019-07-08] MEDS: DOCUSATE/SENNA 50-8.6 MG TABLET PEG SCH ×2 (09:56→21:33)
[2019-07-08] MEDS: MAGNESIUM HYDROXIDE SUSP 30 ML UDCUP PO SCH (09:56)
[2019-07-08] MEDS: LANSOPRAZOLE ODT 30 MG TABLET PO SCH (09:56)
[2019-07-08] MEDS: FINASTERIDE 5 MG TABLET PO SCH (09:56)
[2019-07-08] MEDS: LACTULOSE 20 GM/30 ML UDCUP PO SCH ×3 (09:56→21:33)
[2019-07-08] MEDS: amLODIPine 2.5 MG TABLET PO SCH (09:57)
[2019-07-08] MEDS: APIXABAN 5 MG TABLET PEG SCH ×2 (09:57→21:33)
[2019-07-08] MEDS: TAMSULOSIN 0.4 MG CAPSULE PO SCH (09:57)
[2019-07-08] MEDS: MENTHOL/ZINC OXIDE OINT 71 GM JAR TOP SCH ×2 (09:57→21:34)
[2019-07-08] MEDS: PANTOPRAZOLE 40 MG VIAL IV SCH (09:57)
[2019-07-08] MEDS: POLYETHYLENE GLYCOL POWDER 17 GM PACK PO SCH (09:58)
[2019-07-08] MEDS: NYSTATIN 500,000 UNIT/5 ML UDCUP SWISH/SWAL SCH ×4 (09:58→21:34)
[2019-07-08] MEDS: MOXIFLOXACIN 0.5% OPH SOLN 3 ML BOTTLE LEFT EYE SCH (11:01)
[2019-07-08] MEDS: NEPAFENAC 0.1% OPH SOLN 3 ML BOTTLE LEFT EYE SCH (11:01)
[2019-07-08] MEDS: prednisoLONE ACETATE 1% OPH SUSP 5 ML BOTTLE LEFT EYE SCH (11:01)
[2019-07-08] MEDS: DEXTROSE 5% KCL 20 MEQ 20 MEQ/1,000 ML BAG IV SCH (11:18)
[2019-07-08] MEDS ORDERED: GLUCAGON 1 MG VIAL IM PRN (14:12)
[2019-07-08] MEDS ORDERED: DEXTROSE 50% 25 GM/50 ML VIAL IV PRN (14:12)
[2019-07-08] MEDS ORDERED: TUBERCULIN SKIN TEST 0.1 ML SYRINGE INTRADERM ONE (15:30)
[2019-07-08] MEDS: ATORVASTATIN 40 MG TABLET PO SCH (21:33)
[2019-07-08] MEDS: CITALOPRAM 20 MG TABLET PO SCH (21:33)
[2019-07-09] MEDS: METOCLOPRAMIDE 10 MG/2 ML VIAL IV SCH ×3 (00:56→20:35)
[2019-07-09] MEDS: ALBUTEROL/IPRATROPIUM 3 ML NEB RESP TX SCH ×5 (04:12→19:05)
[2019-07-09 08:10] LABS: Basophils # 0.1 10*3/uL (0.0-0.2); Basophils % 0.4 % (0.0-0.8); Eosinophils # 0.4 10*3/uL (0.0-0.87); Eosinophils % 2.7 % (0.00-10.9); Hematocrit 24.8 VOL% (42.0-52.0); Hemoglobin 8.3 GM/DL (14.0-18.0); Immature Granulocytes % 0.9 %; Immature Granulocytes Absolute 0.12 #; Lymphocytes # 0.9 10*3/uL (1.4-4.0); Lymphocytes % 6.7 % (21.2-54.2); Mean Corpuscular HGB Conc 33.5 GM/DL (32-36); Mean Corpuscular Volume 96.5 FL (87-102); Mean Platelet Volume 10.2 FL (9.6-12.0); Monocytes % 5.7 % (1.7-12.7); Neutrophils % 83.6 % (38.7-73.9); Platelet Count 237 T/CUMM (130-400); Red Blood Count 2.57 MC/CUMM (3.8-5.5); Red Cell Distribution Width 12.6 % (9.3-17.3); White Blood Count 13.9 T/CUMM (4-12)
[2019-07-09 08:27] LABS: Calcium 8.1 MG/DL (8.5-10.1); Osmolality,Calculated 276.1 MOS/KG (273-304)
[2019-07-09] MEDS: amLODIPine 2.5 MG TABLET PO SCH (08:46)
[2019-07-09] MEDS: FINASTERIDE 5 MG TABLET PO SCH (08:46)
[2019-07-09] MEDS: MAGNESIUM HYDROXIDE SUSP 30 ML UDCUP PO SCH (08:46)
[2019-07-09] MEDS: ASPIRIN 325 MG TABLET PO SCH (08:46)
[2019-07-09] MEDS: TAMSULOSIN 0.4 MG CAPSULE PO SCH (08:46)
[2019-07-09] MEDS: DOCUSATE/SENNA 50-8.6 MG TABLET PEG SCH ×2 (08:46→21:43)
[2019-07-09] MEDS: POLYETHYLENE GLYCOL POWDER 17 GM PACK PO SCH (08:46)
[2019-07-09] MEDS: LACTULOSE 20 GM/30 ML UDCUP PO SCH ×3 (08:46→21:43)
[2019-07-09] MEDS: PANTOPRAZOLE 40 MG VIAL IV SCH (08:47)
[2019-07-09] MEDS: NYSTATIN 500,000 UNIT/5 ML UDCUP SWISH/SWAL SCH ×4 (08:47→21:43)
[2019-07-09] MEDS: APIXABAN 5 MG TABLET PEG SCH ×2 (08:47→21:43)
[2019-07-09] MEDS: MENTHOL/ZINC OXIDE OINT 71 GM JAR TOP SCH ×2 (08:48→21:44)
[2019-07-09] MEDS: LANSOPRAZOLE ODT 30 MG TABLET PO SCH (08:48)
[2019-07-09] MEDS: MOXIFLOXACIN 0.5% OPH SOLN 3 ML BOTTLE LEFT EYE SCH (10:17)
[2019-07-09] MEDS: NEPAFENAC 0.1% OPH SOLN 3 ML BOTTLE LEFT EYE SCH (10:17)
[2019-07-09] MEDS: prednisoLONE ACETATE 1% OPH SUSP 5 ML BOTTLE LEFT EYE SCH (10:17)
[2019-07-09] MEDS: DEXTROSE 5% KCL 20 MEQ 20 MEQ/1,000 ML BAG IV SCH (14:47)
[2019-07-09] MEDS: PIPERACILLIN/TAZOBACTAM 3,375 MG in SODIUM CHLORIDE 0.9% 100 ML IV SCH ×2 (14:48→21:42)
[2019-07-09] MEDS: ONDANSETRON 4 MG/2 ML VIAL IV PRN ×2 (16:06→21:40)
[2019-07-09] MEDS: CITALOPRAM 20 MG TABLET PO SCH (21:43)
[2019-07-09] MEDS: ATORVASTATIN 40 MG TABLET PO SCH (21:43)
[2019-07-10] MEDS: ALBUTEROL/IPRATROPIUM 3 ML NEB RESP TX SCH ×7 (00:20→23:30)
[2019-07-10 05:14] LABS: Basophils # 0.1 10*3/uL (0.0-0.2); Basophils % 0.4 % (0.0-0.8); Eosinophils # 0.4 10*3/uL (0.0-0.87); Eosinophils % 3.4 % (0.00-10.9); Hematocrit 24.5 VOL% (42.0-52.0); Hemoglobin 8.2 GM/DL (14.0-18.0); Immature Granulocytes % 0.8 %; Immature Granulocytes Absolute 0.09 #; Lymphocytes # 0.8 10*3/uL (1.4-4.0); Mean Corpuscular HGB Conc 33.5 GM/DL (32-36); Mean Corpuscular Volume 95.3 FL (87-102); Mean Platelet Volume 10.7 FL (9.6-12.0); Monocytes % 6.9 % (1.7-12.7); Neutrophils % 81.5 % (38.7-73.9); Platelet Count 235 T/CUMM (130-400); Red Blood Count 2.57 MC/CUMM (3.8-5.5); Red Cell Distribution Width 12.3 % (9.3-17.3); White Blood Count 11.2 T/CUMM (4-12)
[2019-07-10 05:24] LABS: Calcium 8.4 MG/DL (8.5-10.1)
[2019-07-10] MEDS: DEXTROSE 5% KCL 20 MEQ 20 MEQ/1,000 ML BAG IV SCH (06:19)
[2019-07-10] MEDS: PIPERACILLIN/TAZOBACTAM 3,375 MG in SODIUM CHLORIDE 0.9% 100 ML IV SCH ×3 (06:20→20:55)
[2019-07-10] MEDS: NYSTATIN 500,000 UNIT/5 ML UDCUP SWISH/SWAL SCH ×4 (09:33→21:57)
[2019-07-10] MEDS: MAGNESIUM HYDROXIDE SUSP 30 ML UDCUP PO SCH (09:33)
[2019-07-10] MEDS: LACTULOSE 20 GM/30 ML UDCUP PO SCH ×3 (09:33→21:57)
[2019-07-10] MEDS: PANTOPRAZOLE 40 MG VIAL IV SCH (09:34)
[2019-07-10] MEDS: DOCUSATE/SENNA 50-8.6 MG TABLET PEG SCH ×2 (09:34→21:57)
[2019-07-10] MEDS: LANSOPRAZOLE ODT 30 MG TABLET PO SCH (09:35)
[2019-07-10] MEDS: APIXABAN 5 MG TABLET PEG SCH ×2 (09:35→20:54)
[2019-07-10] MEDS: TAMSULOSIN 0.4 MG CAPSULE PO SCH (09:35)
[2019-07-10] MEDS: amLODIPine 2.5 MG TABLET PO SCH (09:35)
[2019-07-10] MEDS: ASPIRIN 325 MG TABLET PO SCH (09:35)
[2019-07-10] MEDS: POLYETHYLENE GLYCOL POWDER 17 GM PACK PO SCH (09:37)
[2019-07-10] MEDS: MENTHOL/ZINC OXIDE OINT 71 GM JAR TOP SCH ×2 (09:37→20:58)
[2019-07-10] MEDS: NEPAFENAC 0.1% OPH SOLN 3 ML BOTTLE LEFT EYE SCH (09:38)
[2019-07-10] MEDS: FINASTERIDE 5 MG TABLET PO SCH (09:39)
[2019-07-10] MEDS: prednisoLONE ACETATE 1% OPH SUSP 5 ML BOTTLE LEFT EYE SCH (09:39)
[2019-07-10] MEDS: MOXIFLOXACIN 0.5% OPH SOLN 3 ML BOTTLE LEFT EYE SCH (09:39)
[2019-07-10] MEDS: ONDANSETRON 4 MG/2 ML VIAL IV PRN (19:40)
[2019-07-10] MEDS: CITALOPRAM 20 MG TABLET PO SCH (20:54)
[2019-07-10] MEDS: ATORVASTATIN 40 MG TABLET PO SCH (20:54)
[2019-07-11] MEDS: ALBUTEROL/IPRATROPIUM 3 ML NEB RESP TX SCH ×4 (02:10→14:17)
[2019-07-11 03:47] LABS: Basophils % 0.5 % (0.0-0.8); Eosinophils # 0.4 10*3/uL (0.0-0.87); Eosinophils % 4.1 % (0.00-10.9); Hematocrit 24.1 VOL% (42.0-52.0); Hemoglobin 8.1 GM/DL (14.0-18.0); Immature Granulocytes % 0.8 %; Immature Granulocytes Absolute 0.07 #; Lymphocytes # 0.8 10*3/uL (1.4-4.0); Lymphocytes % 9.3 % (21.2-54.2); Mean Corpuscular HGB Conc 33.6 GM/DL (32-36); Mean Corpuscular Volume 94.9 FL (87-102); Monocytes % 8.1 % (1.7-12.7); Neutrophils % 77.2 % (38.7-73.9); Platelet Count 227 T/CUMM (130-400); Red Blood Count 2.54 MC/CUMM (3.8-5.5); Red Cell Distribution Width 12.2 % (9.3-17.3); White Blood Count 8.8 T/CUMM (4-12)
[2019-07-11 04:07] LABS: Calcium 8.3 MG/DL (8.5-10.1); Osmolality,Calculated 271.1 MOS/KG (273-304)
[2019-07-11] MEDS: PIPERACILLIN/TAZOBACTAM 3,375 MG in SODIUM CHLORIDE 0.9% 100 ML IV SCH ×2 (04:53→14:16)
[2019-07-11] MEDS: ASPIRIN 325 MG TABLET PO SCH (09:15)
[2019-07-11] MEDS: TAMSULOSIN 0.4 MG CAPSULE PO SCH (09:15)
[2019-07-11] MEDS: LANSOPRAZOLE ODT 30 MG TABLET PO SCH (09:15)
[2019-07-11] MEDS: amLODIPine 2.5 MG TABLET PO SCH (09:15)
[2019-07-11] MEDS: APIXABAN 5 MG TABLET PEG SCH (09:15)
[2019-07-11] MEDS: NYSTATIN 500,000 UNIT/5 ML UDCUP SWISH/SWAL SCH ×2 (09:16→14:17)
[2019-07-11] MEDS: LACTULOSE 20 GM/30 ML UDCUP PO SCH ×2 (09:16→16:25)
[2019-07-11] MEDS: NEPAFENAC 0.1% OPH SOLN 3 ML BOTTLE LEFT EYE SCH (09:17)
[2019-07-11] MEDS: MAGNESIUM HYDROXIDE SUSP 30 ML UDCUP PO SCH (09:17)
[2019-07-11] MEDS: FINASTERIDE 5 MG TABLET PO SCH (09:17)
[2019-07-11] MEDS: prednisoLONE ACETATE 1% OPH SUSP 5 ML BOTTLE LEFT EYE SCH (09:17)
[2019-07-11] MEDS: POLYETHYLENE GLYCOL POWDER 17 GM PACK PO SCH (09:17)
[2019-07-11] MEDS: PANTOPRAZOLE 40 MG VIAL IV SCH (09:18)
[2019-07-11] MEDS: DOCUSATE/SENNA 50-8.6 MG TABLET PEG SCH (09:18)
[2019-07-11] MEDS: MOXIFLOXACIN 0.5% OPH SOLN 3 ML BOTTLE LEFT EYE SCH (09:18)
[2019-07-11] MEDS: MENTHOL/ZINC OXIDE OINT 71 GM JAR TOP SCH (09:20)
[2019-07-11 13:26] VITALS: BP 126/85
== END 2019-07-11 17:20 | DRG 91 ==
LOC: EDBD → EDUNIT# → N.EDINP 11:44 → N.ED 11:44 → N.EDINP 17:48 → N.4E 17:57 → SUATTDRO 06-05 14:43 → SUPCPDRO 06-05 14:43
PROVIDERS: ADMIT Internal Medicine Geriatric Medicine; ATTEND Internal Medicine
PROC: EGDWPEG (ICD-10-PCS; 2019-06-14 08:05)

== ENCOUNTER 2019-07-15 12:04 | Inpatient (IN) ==
[2019-07-15] MEDS ORDERED: ONDANSETRON 4 MG/2 ML VIAL IV STA (12:56)
[2019-07-15 13:55] LABS: Basophils # 0.1 10*3/uL (0.0-0.2); Basophils % 0.3 % (0.0-0.8); Eosinophils # 0.5 10*3/uL (0.0-0.87); Eosinophils % 2.6 % (0.00-10.9); Hematocrit 35.4 VOL% (42.0-52.0); Hemoglobin 11.8 GM/DL (14.0-18.0); Immature Granulocytes % 0.7 %; Immature Granulocytes Absolute 0.13 #; Lymphocytes # 1.3 10*3/uL (1.4-4.0); Lymphocytes % 7.5 % (21.2-54.2); Mean Corpuscular HGB Conc 33.3 GM/DL (32-36); Mean Corpuscular Volume 94.9 FL (87-102); Mean Platelet Volume 10.7 FL (9.6-12.0); Monocytes % 3.5 % (1.7-12.7); Neutrophils % 85.4 % (38.7-73.9); Platelet Count 364 T/CUMM (130-400); Red Blood Count 3.73 MC/CUMM (3.8-5.5); White Blood Count 17.9 T/CUMM (4-12)
[2019-07-15 14:12] LABS: Alanine Aminotransferase 151 U/L (16-61); Albumin 3.2 G/DL (3.4-5.0); Alkaline Phosphatase 142 U/L (45-117); Aspartate Amino Transferase 63 U/L (0-37); Blood Urea Nitrogen 17 MG/DL (7-18); Calcium 9.6 MG/DL (8.5-10.1); Estimated Glom Filtration Rate 94 ML/MIN; Glucose 108 MG/DL (74-106); Total Protein 8.7 G/DL (6.4-8.3)
[2019-07-15] MEDS ORDERED: SODIUM CHLORIDE 0.9% 1,000 ML IV STA (14:47)
[2019-07-15 14:53] LABS: Apearance,Urine CLEAR (Clear); Bilirubin,Urine Negative (Negative); Blood, Urine Small mg/dL (Negative); Glucose,Urine (UA) Negative (Negative); Hyaline Casts,Urine 39 /LPF (0-3); Ketones,Urine Negative (Negative); Mucus,Urine Occasional /LPF (Occasional); Nitrite,Urine Negative (Negative); Protein,Urine Negative; RBC,Urine 20 /HPF (0-4); Squamous Epithelial Cell,Urine Occasional /HPF (0-10); Urine Color Amber (Yellow); Urine Specific Gravity 1.043 (1.001-1.035); Urine Urobilinogen < 2.0 EU/DL (0.2-1.0); WBC,Urine 2 /HPF (0-6)
[2019-07-15] MEDS ORDERED: ONDANSETRON 4 MG/2 ML VIAL IV PRN (15:53)
[2019-07-15] MEDS ORDERED: PROMETHAZINE 25 MG/1 ML VIAL IM PRN (15:53)
[2019-07-15] MEDS: SODIUM CHLORIDE 0.45% 1,000 ML IV SCH (16:45)
[2019-07-15] MEDS: PIPERACILLIN/TAZOBACTAM 3,375 MG in SODIUM CHLORIDE 0.9% 100 ML IV SCH ×2 (16:50→23:47)
[2019-07-15] MEDS: VANCOMYCIN INJ 1,250 MG in SODIUM CHLORIDE 0.9% 250 ML IV SCH (20:38)
[2019-07-15] MEDS: DORZOLAMIDE/TIMOLOL OPH SOLN 10 ML BOTTLE RIGHT EYE SCH (21:39)
[2019-07-15] MEDS: MINERAL OIL/PETROLATUM OPH OINT 3.5 GM TUBE RIGHT EYE SCH (21:39)
[2019-07-15] MEDS: LATANOPROST 0.005% OPH SOLN 2.5 ML BOTTLE BOTH EYES SCH (21:40)
[2019-07-15] MEDS: HEPARIN 5,000 UNIT/1 ML VIAL SUBCUT SCH (21:40)
[2019-07-16 04:49] LABS: Basophils # 0.1 10*3/uL (0.0-0.2); Basophils % 0.3 % (0.0-0.8); Eosinophils # 0.3 10*3/uL (0.0-0.87); Eosinophils % 1.1 % (0.00-10.9); Hematocrit 24.5 VOL% (42.0-52.0); Hemoglobin 8.2 GM/DL (14.0-18.0); Immature Granulocytes % 0.6 %; Immature Granulocytes Absolute 0.15 #; Lymphocytes # 1.3 10*3/uL (1.4-4.0); Lymphocytes % 5.8 % (21.2-54.2); Mean Corpuscular HGB Conc 33.5 GM/DL (32-36); Mean Platelet Volume 10.4 FL (9.6-12.0); Monocytes % 4.8 % (1.7-12.7); Neutrophils % 87.4 % (38.7-73.9); Platelet Count 248 T/CUMM (130-400); Red Blood Count 2.58 MC/CUMM (3.8-5.5); Red Cell Distribution Width 13.3 % (9.3-17.3); White Blood Count 23.2 T/CUMM (4-12)
[2019-07-16 05:14] LABS: Albumin 2.1 G/DL (3.4-5.0); Bilirubin,Total 1.1 MG/DL (0.2-1.0); Calcium 8.1 MG/DL (8.5-10.1); Osmolality,Calculated 275.8 MOS/KG (273-304); Total Protein 5.9 G/DL (6.4-8.3)
[2019-07-16 05:26] LABS: Eosinophils 3 % (0-10); Hypochromasia 1+; Lymphocytes 6 % (20-55); Ovalocytes Slight; Platelet Estimate Adequate; Segmented Neutrophils 89 % (50-85); Total Cells Counted 100
[2019-07-16] MEDS: HEPARIN 5,000 UNIT/1 ML VIAL SUBCUT SCH ×3 (05:54→21:50)
[2019-07-16] MEDS: SODIUM CHLORIDE 0.45% 1,000 ML IV SCH ×2 (06:44→22:15)
[2019-07-16] MEDS: PIPERACILLIN/TAZOBACTAM 3,375 MG in SODIUM CHLORIDE 0.9% 100 ML IV SCH ×2 (09:20→15:43)
[2019-07-16] MEDS: DORZOLAMIDE/TIMOLOL OPH SOLN 10 ML BOTTLE RIGHT EYE SCH ×2 (09:28→21:50)
[2019-07-16] MEDS: LEVOFLOXACIN INJ 750 MG in PREMIX 1 EACH IV SCH (11:47)
[2019-07-16] MEDS ORDERED: DEXTROSE 50% 25 GM/50 ML VIAL IV PRN (13:10)
[2019-07-16] MEDS ORDERED: GLUCAGON 1 MG VIAL IM PRN (13:10)
[2019-07-16] MEDS: ALBUTEROL/IPRATROPIUM 3 ML NEB RESP TX SCH ×2 (13:25→19:50)
[2019-07-16] MEDS: MENTHOL/ZINC OXIDE OINT 71 GM JAR TOP SCH ×2 (15:44→21:47)
[2019-07-16] MEDS: INSULIN REGULAR 100 UNIT/ML SUBCUT SCH (19:14)
[2019-07-16] MEDS: VANCOMYCIN INJ 1,250 MG in SODIUM CHLORIDE 0.9% 250 ML IV SCH (20:23)
[2019-07-16] MEDS: MINERAL OIL/PETROLATUM OPH OINT 3.5 GM TUBE RIGHT EYE SCH (21:50)
[2019-07-16] MEDS: LATANOPROST 0.005% OPH SOLN 2.5 ML BOTTLE BOTH EYES SCH (21:50)
[2019-07-17] MEDS: INSULIN REGULAR 100 UNIT/ML SUBCUT SCH ×4 (00:06→18:04)
[2019-07-17] MEDS: PIPERACILLIN/TAZOBACTAM 3,375 MG in SODIUM CHLORIDE 0.9% 100 ML IV SCH ×3 (00:18→16:53)
[2019-07-17] MEDS: ALBUTEROL/IPRATROPIUM 3 ML NEB RESP TX SCH ×4 (00:41→19:04)
[2019-07-17] MEDS: HEPARIN 5,000 UNIT/1 ML VIAL SUBCUT SCH ×3 (05:50→21:15)
[2019-07-17 06:11] LABS: Basophils % 0.4 % (0.0-0.8); Eosinophils # 0.5 10*3/uL (0.0-0.87); Eosinophils % 4.6 % (0.00-10.9); Hematocrit 25.2 VOL% (42.0-52.0); Hemoglobin 8.5 GM/DL (14.0-18.0); Immature Granulocytes % 0.5 %; Immature Granulocytes Absolute 0.05 #; Lymphocytes # 0.9 10*3/uL (1.4-4.0); Lymphocytes % 8.2 % (21.2-54.2); Mean Corpuscular HGB Conc 33.7 GM/DL (32-36); Mean Corpuscular Volume 95.1 FL (87-102); Mean Platelet Volume 10.2 FL (9.6-12.0); Monocytes % 6.4 % (1.7-12.7); Neutrophils % 79.9 % (38.7-73.9); Platelet Count 237 T/CUMM (130-400); Red Blood Count 2.65 MC/CUMM (3.8-5.5); Red Cell Distribution Width 13.2 % (9.3-17.3); White Blood Count 10.5 T/CUMM (4-12)
[2019-07-17 06:50] LABS: Prealbumin 11.8 MG/DL (20-40)
[2019-07-17 06:51] LABS: Albumin 2.1 G/DL (3.4-5.0); Bilirubin,Total 0.5 MG/DL (0.2-1.0); Calcium 8.1 MG/DL (8.5-10.1); Osmolality,Calculated 274.7 MOS/KG (273-304); Total Protein 6.1 G/DL (6.4-8.3)
[2019-07-17] MEDS: DORZOLAMIDE/TIMOLOL OPH SOLN 10 ML BOTTLE RIGHT EYE SCH ×2 (08:06→21:16)
[2019-07-17] MEDS: MENTHOL/ZINC OXIDE OINT 71 GM JAR TOP SCH ×2 (08:07→21:16)
[2019-07-17] MEDS: LEVOFLOXACIN INJ 750 MG in PREMIX 1 EACH IV SCH (12:18)
[2019-07-17] MEDS: SODIUM CHLORIDE 0.45% 1,000 ML IV SCH (12:21)
[2019-07-17] MEDS: MINERAL OIL/PETROLATUM OPH OINT 3.5 GM TUBE RIGHT EYE SCH (21:16)
[2019-07-17] MEDS: LATANOPROST 0.005% OPH SOLN 2.5 ML BOTTLE BOTH EYES SCH (21:16)
[2019-07-18] MEDS: PIPERACILLIN/TAZOBACTAM 3,375 MG in SODIUM CHLORIDE 0.9% 100 ML IV SCH ×2 (00:04→09:15)
[2019-07-18] MEDS: INSULIN REGULAR 100 UNIT/ML SUBCUT SCH ×2 (00:04→05:40)
[2019-07-18] MEDS: ALBUTEROL/IPRATROPIUM 3 ML NEB RESP TX SCH ×2 (00:48→07:17)
[2019-07-18] MEDS: SODIUM CHLORIDE 0.45% 1,000 ML IV SCH (01:58)
[2019-07-18 04:40] LABS: Basophils % 0.3 % (0.0-0.8); Eosinophils # 0.5 10*3/uL (0.0-0.87); Hematocrit 24.6 VOL% (42.0-52.0); Hemoglobin 8.3 GM/DL (14.0-18.0); Immature Granulocytes % 0.6 %; Immature Granulocytes Absolute 0.05 #; Lymphocytes % 11.2 % (21.2-54.2); Mean Corpuscular HGB Conc 33.7 GM/DL (32-36); Mean Corpuscular Volume 93.9 FL (87-102); Mean Platelet Volume 10.3 FL (9.6-12.0); Monocytes % 5.8 % (1.7-12.7); Neutrophils % 77.1 % (38.7-73.9); Platelet Count 260 T/CUMM (130-400); Red Blood Count 2.62 MC/CUMM (3.8-5.5)
[2019-07-18 05:09] LABS: Bilirubin,Total 0.6 MG/DL (0.2-1.0); Calcium 7.9 MG/DL (8.5-10.1); Total Protein 5.9 G/DL (6.4-8.3)
[2019-07-18 05:27] LABS: Prealbumin 12.2 MG/DL (20-40)
[2019-07-18] MEDS: HEPARIN 5,000 UNIT/1 ML VIAL SUBCUT SCH (05:39)
[2019-07-18] MEDS: DORZOLAMIDE/TIMOLOL OPH SOLN 10 ML BOTTLE RIGHT EYE SCH (09:16)
[2019-07-18] MEDS: MENTHOL/ZINC OXIDE OINT 71 GM JAR TOP SCH (09:16)
[2019-07-18] MEDS ORDERED: INFLUENZA VIRUS VACCINE 0.5 ML SYRINGE IM ONE (10:56)
[2019-07-18] MEDS: LEVOFLOXACIN INJ 750 MG in PREMIX 1 EACH IV SCH (11:12)
[2019-07-18 11:47] VITALS: BP 134/77
== END 2019-07-18 11:45 | DRG 388 ==
LOC: EDUNIT# → EDBD → N.ED 12:04 → N.EDINP 12:04 → N.3E 17:21 → SUATTDRO 07-16 13:02
PROVIDERS: ATTEND Internal Medicine Cardiovascular Disease